=== PATIENT | male | born 1945 | race Caucasian/White ===

== ENCOUNTER 2018-10-22 17:05 | Inpatient (IN) | payer MEDICARE ==
[2018-10-22 18:34] LABS: Troponin I 0.972 ng/mL (< 0.028)
[2018-10-22] MEDS ORDERED: Nitroglycerin 2% Ointment 1 INCH/1 GM Packet TOP SCH (22:00)
[2018-10-22 22:12] LABS: Troponin I 2.123 ng/mL (< 0.028)
[2018-10-22] MEDS ORDERED: Guaifenesin DM 100-10/5 ML UDCUP PO PRN ×2 (22:26→23:39)
[2018-10-22] MEDS ORDERED: Ondansetron PF 4 MG/2 ML Vial IVP PRN ×2 (22:26→23:39)
[2018-10-22] MEDS ORDERED: Acetaminophen 325 MG TAB PO PRN ×2 (22:26→23:39)
[2018-10-22] MEDS ORDERED: Ondansetron ODT 4 MG TAB PO PRN ×2 (22:26→23:39)
[2018-10-22] MEDS ORDERED: Senokot S 8.6-50 MG TAB PO PRN ×2 (22:26→23:39)
[2018-10-22] MEDS ORDERED: Nitroglycerin 0.4 MG TAB (25 Tab Bottle) PO PRN ×2 (22:26→23:39)
[2018-10-22] MEDS ORDERED: Bisacodyl 5 MG TAB PO PRN ×2 (22:26→23:39)
[2018-10-22] MEDS ORDERED: Sodium Chloride 0.9% 1,000 ML IV SCH (22:30)
[2018-10-22 23:30] LABS: #Basophils 0.1 thou/uL (0.0-0.2); #Lymphocytes 1.1 thou/uL (1.20-3.40); #Monocytes 0.7 thou/uL (0.11-0.59); #Neutrophils 4.7 thou/uL (1.40-6.50); %Eosinophils 0.5 % (0.0-10.0); %Lymphocytes 17.1 % (21.0-51.0); %Monocytes 10.2 % (0.0-10.0); %Neutrophils 71.2 % (42.0-75.0); Hemoglobin 16.5 g/dL (14.0-18.0); Mean Corpuscular HGB CONC 33.3 g/dL (32.0-36.0); Mean Corpuscular Hemoglobin 31.9 pg (27.0-31.0); Mean Corpuscular Volume 95.7 fL (78.0-98.0); Mean Platelet Volume 8.4 fL (7.4-10.4); Platelet Count 176 thou/uL (130-400); RBC Distribution Width 13.5 % (11.5-14.5); Red Blood Cell (RBC) Count 5.19 mill/uL (4.70-6.10); White Blood Cell (WBC) Count 6.6 thou/uL (4.8-10.8)
[2018-10-22 23:48] LABS: Anion Gap 17 mmol/L (10-20); BUN (Urea Nitrogen) 10 mg/dL (8.4-25.7); Calc. Creatinine Clearance 87 mL/min (70-130); Calcium 9.6 mg/dL (7.8-10.44); Carbon Dioxide 25 mmol/L (23-31); Chloride 102 mmol/L (98-107); Estimated GFR-MDRD 72; Glucose 91 mg/dL (83-110); Potassium 3.6 mmol/L (3.5-5.1); Sodium 140 mmol/L (136-145)
[2018-10-23] MEDS ORDERED: Nitroglycerin 2% Ointment 1 INCH/1 GM Packet TOP SCH ×2 (00:30→06:00)
[2018-10-23 05:57] LABS: Hemoglobin 14.9 g/dL (14.0-18.0); Platelet Count 167 thou/uL (130-400)
[2018-10-23] MEDS ORDERED: Eucerin (Mineral Oil/Petrolatum,White) 30 gm Jar TOP PRN (07:37)
[2018-10-23] MEDS ORDERED: HYDROcodone/Acetaminophen 5/325 mg Tablet PO PRN (07:37)
[2018-10-23] MEDS ORDERED: Diabetic Tussin 200 MG/10 ML UDCUP PO PRN (07:37)
[2018-10-23] MEDS ORDERED: Cepastat Lozenges 1 LOZ PO PRN (07:37)
[2018-10-23] MEDS ORDERED: Zolpidem Tartrate 5 MG TAB PO PRN (07:37)
[2018-10-23] MEDS ORDERED: hydrALAZINE 20 MG/ML VIAL SLOW IVP PRN (07:37)
[2018-10-23] MEDS ORDERED: Artificial Tears 18 DROP/0.9 ML EA EYE PRN (07:37)
[2018-10-23] MEDS ORDERED: Sodium Chloride 0.65% Nasal 44 ML BOT EA NARE PRN (07:37)
[2018-10-23] MEDS ORDERED: Loratadine 10 MG TAB PO PRN (07:37)
[2018-10-23] MEDS ORDERED: Famotidine/PF 20 mg/2ml Vial SLOW IVP SCH (09:00)
[2018-10-23] MEDS: Famotidine 20 MG TAB PO SCH ×2 (09:00→21:06)
[2018-10-23] MEDS ORDERED: Aspirin 325 MG TAB PO SCH (09:00)
[2018-10-23] MEDS ORDERED: Enoxaparin Sodium 80 MG/0.8 ML SYRINGE SC SCH (09:00)
[2018-10-23] MEDS ORDERED: Enoxaparin Sodium 100 MG/ML SYRINGE SC SCH (09:00)
[2018-10-23] MEDS ORDERED: Metoprolol Tartrate 25 MG TAB PO SCH (09:00)
--- NOTE | 2018-10-23 09:11 | HP ---
CHIEF COMPLAINT: Elevated troponin, and the patient is being transferred. HISTORY OF PRESENT ILLNESS: This is a 72-year-old male with no significant past medical history, presenting with elevated troponins. The patient states that he went to [facility] and the prelim labs that were done showed that his troponins were elevated, and because of that, the doctor over there, decided to transfer him to our facility so that he can be further worked up. The patient stated that he is feeling okay. He does not have any chest pain, palpitations, diaphoresis, nausea, vomiting, fevers. The patient states that the only symptom that he has been having is abdominal distention associated with some bloating, which after burping sometimes he gets better. The patient states that this has been ongoing for the past 1.5 weeks and currently is actually resolving. REVIEW OF SYSTEMS: Positive for bilateral lower extremity edema and dyspnea on exertion. Otherwise, all other systems were reviewed and are negative. PAST MEDICAL HISTORY: No significant past medical history. PAST SURGICAL HISTORY: Tonsillectomy. FAMILY HISTORY: Reviewed, noncontributory. SOCIAL HISTORY: The patient states that he has lived in many parts of the [place]. He has moved about 28 times, and currently, he states that he lives by himself at home. Denies any illicit drugs. Denies smoking history. The patient stated that he drinks about one beer in a week. ALLERGIES: NO KNOWN DRUG ALLERGIES. MEDICATIONS: No current medications. PHYSICAL EXAMINATION: VITAL SIGNS: The patient's blood pressure is 131/85, pulse of 83, respiratory rate of 20, temperature of 97.8, O2 saturation of 95. GENERAL: The patient is lying in bed, does not appear to be in any acute distress. The patient is speaking in full sentences. HEENT: Normocephalic and atraumatic. Pupils are equally round and reactive to light. Extraocular movements are intact. No scleral icterus. No conjunctival pallor. Mucous membranes are moist. NECK: No JVD. Trachea is midline. LUNGS: Clear to auscultation bilaterally. No wheezing, no rales, no rhonchi are appreciated. CARDIAC: Positive S1, S2. Regular rate and rhythm. No murmurs, no gallops, no rubs appreciated. ABDOMEN: Soft, nontender, nondistended. Positive bowel sounds in all quadrants. EXTREMITIES: The patient has 5/5 upper extremity strength and 5/5 lower extremity strength with trace edema noted at the lower extremities bilaterally. NEUROLOGIC: Cranial nerves 2 through 12 grossly intact. No neurologic deficits noted. SKIN: Warm, dry, and intact. DIAGNOSTIC DATA: EKG shows normal sinus rhythm with a rate of 91. LABORATORY DATA: WBC is 6.6, hemoglobin is 16.5, hematocrit is 49.6, platelet count is 176. Electrolytes are sodium is 140, potassium is 3.6, chloride is 102, carbon dioxide of 25, anion gap of 17, creatinine is 1.02. Troponins are 0.972, 2.123. ASSESSMENT AND PLAN: This is a 72-year-old male with no significant past medical history, being admitted for, 1. Non-ST elevation myocardial infarction. At this point, the patient is being treated for non-ST elevation myocardial infarction. We have consulted Cardiology. We will follow up with Cardiology regarding their recommendations. We will continue the patient on current management. We will continue anticoagulation. We will follow up on morning labs. 2. Hypertension. The patient's blood pressure was uncontrolled, and the patient came in the hospital. At this time, we will monitor the patient's blood pressure and we will give the patient p.r.n. blood pressure medications to manage the patient's blood pressure. 3. Dyspnea on exertion. At this point, the patient stated that he is feeling much better; however, we have Cardiology on consult. We will follow up with Cardiology's recommendations, and we will continue cardiac workup. 4. Deep vein thrombosis/gastrointestinal prophylaxis. Job ID: [id number]
[2018-10-23 09:38] LABS: ALT (SGPT) 14 U/L (8-55); AST (SGOT) 43 U/L (5-34); Albumin 3.2 g/dL (3.4-4.8); Alkaline Phosphatase 82 U/L (40-150); Bilirubin, Direct 0.4 mg/dL (0.1-0.3); Bilirubin, Total 1.2 mg/dL (0.2-1.2); Cardiac Risk 3.5 (Less than 4.5); Cholesterol 158 mg/dl (< 200 Desired); HDL Cholesterol 45 mg/dL (>60 Neg Risk); LDL Cholesterol, Calculated 93 mg/dL; Protein, Total 7.8 g/dL (5.8-8.1); Triglycerides 100 mg/dL (Less than 150)
--- NOTE | 2018-10-23 11:07 | PDOC.PN ---
- Subjective Encounter Start Date: 10/23/18 Encounter Start Time: 07:50 -: old records requested/rev pt feels better, less dyspnea and no chest pain, he is on room air, Patient seen and examined. No new complaints. No overnight events - Objective Resuscitation Status - Order Detail: 10/22/18 22:26 Resuscitation Status Routine Resuscitation Status: FULL: Full Resuscitation MAR Reviewed: Yes Vital Signs & Weight: Vital Signs (12 hours) Temp Pulse Resp BP BP Pulse Ox 10/23/18 07:30 93 L 10/23/18 07:20 98.1 F 86 16 127/57 L 93 L 10/23/18 04:37 97.3 F L 77 16 100/58 L 92 L Weight Weight 209 lb 11.2 oz I&O: 10/22/18 10/23/18 10/24/18 06:59 06:59 06:59 Intake Total 200 Output Total 300 Balance -100 Result Diagrams: 10/23/18 05:20 10/23/18 05:20 Radiology Reviewed by me: Yes EKG Reviewed by me: Yes (nsr) Phys Exam - Physical Examination Constitutional: NAD HEENT: PERRLA, moist MMs, sclera anicteric Neck: no JVD, supple Respiratory: no wheezing, no rhonchi few basal rales Cardiovascular: RRR, no significant murmur, no rub Gastrointestinal: soft, non-tender, no distention, positive bowel sounds Musculoskeletal: pulses present, edema present Neurological: non-focal, normal sensation, moves all 4 limbs Psychiatric: normal affect, A&O x 3 Skin: no rash, normal turgor Dx/Plan (1) New onset of congestive heart failure Code(s): I50.9 - HEART FAILURE, UNSPECIFIED Status: Acute (2) NSTEMI (non-ST elevated myocardial infarction) Code(s): I21.4 - NON-ST ELEVATION (NSTEMI) MYOCARDIAL INFARCTION Status: Acute (3) Obesity (BMI 30.0-34.9) Code(s): E66.9 - OBESITY, UNSPECIFIED Status: Chronic - Plan cont current plan of care * continue aspirin, lovenox * change lasix po * DC nitro patch for low BP * continue meroprolol * get echo today * cardiology consulted, he will need cardiac cath * monitor on tele * medication reviewed as below * symptomatic treatment. Review of Systems - Review of Systems ENT: negative: Ear Pain, Ear Discharge, Nose Pain, Nose Discharge, Nose Congestion, Mouth Pain, Mouth Swelling, Throat Pain, Throat Swelling, Other Respiratory: SOB with Excertion. negative: Cough, Dry, Shortness of Breath, Hemoptysis, Pleuritic Pain, Sputum, Wheezing Cardiovascular: negative: chest pain, palpitations, orthopnea, paroxysmal nocturnal dyspnea, edema, light headedness, other Gastrointestinal: negative: Nausea, Vomiting, Abdominal Pain, Diarrhea, Constipation, Melena, Hematochezia, Other Genitourinary: negative: Dysuria, Frequency, Incontinence, Hematuria, Retention , Other Musculoskeletal: negative: Neck Pain, Shoulder Pain, Arm Pain, Back Pain, Hand Pain, Leg Pain, Foot Pain, Other Skin: negative: Rash, Lesions, Valerio, Bruising, Other - Medications/Allergies Allergies/Adverse Reactions: Allergies Allergy/AdvReac Type Severity Reaction Status Date / Time No Known Allergies Allergy Unverified 10/22/18 22:37 Medications: Current Medications Acetaminophen (Tylenol) 650 mg PO Q4H PRN PRN Reason: Headache/Fever/Mild Pain (1-3) Hydrocodone Bitart/Acetaminophen ([place] 5/325) 1 tab PO Q4H PRN PRN Reason: Moderate Pain (4-6) Artificial Tears (Tears Naturale) 2 drop EA EYE PRN PRN PRN Reason: Dry Eyes Aspirin (Aspirin) 325 mg PO DAILY [facility] Last Admin: 10/23/18 08:59 Dose: 325 mg Atorvastatin Calcium (Lipitor) 40 mg PO HS [facility] Bisacodyl (Dulcolax) 10 mg PO DAILYPRN PRN PRN Reason: Constipation Enoxaparin Sodium (Lovenox) 100 mg SC 0900,2100 [facility] Last Admin: 10/23/18 09:00 Dose: 100 mg Famotidine (Pepcid) 20 mg PO BID [facility] Last Admin: 10/23/18 09:00 Dose: 20 mg Guaifenesin (Robitussin Sf) 200 mg PO Q4H PRN PRN Reason: Cough Guaifenesin/Dextromethorphan (Robitussin Dm) 15 ml PO Q4H PRN PRN Reason: Cough Hydralazine HCl (Apresoline) 10 mg SLOW IVP Q4H PRN PRN Reason: SBP > 180 and HR < 70 Loratadine (Claritin) 10 mg PO DAILYPRN PRN PRN Reason: Sinus Symptoms Metoprolol Tartrate (Lopressor) 12.5 mg PO BID [facility] Last Admin: 10/23/18 08:58 Dose: 12.5 mg Mineral Oil/White Petrolatum (Eucerin Cream) 0 gm TOP BIDPRN PRN PRN Reason: Dry Skin Nitroglycerin (Nitrostat) 0.4 mg PO Q5MIN PRN PRN Reason: Chest Pain Ondansetron HCl (Zofran Odt) 4 mg PO Q6H PRN PRN Reason: Nausea/Vomiting Ondansetron HCl (Zofran) 4 mg IVP Q6H PRN PRN Reason: Nausea/Vomiting Senna/Docusate Sodium (Senokot S) 2 tab PO BIDPRN PRN PRN Reason: Constipation Sodium Chloride (Flush - Normal Saline) 10 ml IVF Q12HR [facility] Last Admin: 10/23/18 09:00 Dose: 10 ml Sodium Chloride (Flush - Normal Saline) 10 ml IVF PRN PRN PRN Reason: Saline Flush Sodium Chloride ([place] Nasal [place] 0.65%) 0 ml EA NARE QIDPRN PRN PRN Reason: Nasal Congestion Throat Lozenges (Cepastat Lozenges) 1 tammy PO Q2H PRN PRN Reason: Sore Throat Zolpidem Tartrate (Ambien) 5 mg PO HSPRN PRN PRN Reason: Insomnia
[2018-10-23] MEDS ORDERED: Communication Order-Pharmacy FS SCH (14:00)
[2018-10-23] MEDS: Furosemide 20 MG TAB PO SCH (15:00)
[2018-10-23] MEDS: Carvedilol 3.125 MG TAB PO SCH (16:26)
--- NOTE | 2018-10-23 20:50 | CON ---
DATE OF CONSULTATION: HISTORY: Lee Aparicio is a pleasant 72-year-old white male who denies any previous health problems. He has noted over the last 3 or 4 weeks that at times, he would get epigastric pressure and bloating, which was many times relieved with belching. Also associated with this, he would sometimes feel short of breath. He had no nausea, vomiting, or diaphoresis. One to two weeks ago, he began to notice his leg swelling. The episodes of epigastric discomfort did not appear to last more than 1 or 2 minutes at a time. He does not know of any activities that would bring this on a reliable basis. Yesterday, he was having the epigastric pressure and bloating and later in the day, looked at his leg edema and decided he was going to go to the emergency room in [place] to have this evaluated. He was seen there, given intravenous Lasix and transferred for further evaluation. PAST MEDICAL HISTORY: He denies any history of hypertension, diabetes, or hypercholesterolemia. PAST SURGICAL HISTORY: Tonsillectomy. MEDICATIONS: None. ALLERGIES: NONE. SOCIAL HISTORY: He smoked several cigarettes per day, but stopped 4 years ago. He started smoking again after his . FAMILY HISTORY: Father had myocardial infarction. PHYSICAL EXAMINATION: VITAL SIGNS: Blood pressure 100/62 and pulse 74. HEENT: PERRL. NECK: Supple. CHEST: Clear. CARDIAC: S1 and S2 normal without any S3 or S4, or murmurs. Carotid upstroke is normal without bruits. ABDOMEN: Normal bowel sounds. He does not have any epigastric tenderness. EXTREMITIES: Revealed 2+ pretibial edema. NEUROLOGIC: Grossly intact. SKIN: Warm and dry. LABORATORY DATA: EKG in [place] revealed sinus tachycardia with a rate of 111 per minute with premature ventricular beats. There is low voltage and downsloping ST segments in 1 and L as well as V3 through V6. CBC is unremarkable. Sodium 140, potassium 3.6, chloride 102, carbon dioxide 25 , BUN 10, creatinine 1.02. AST 43, ALT is normal at 14. BNP 1689.1, troponin I 2.123. Cholesterol 158, triglycerides 100, HDL 45, LDL 93. Echocardiogram revealed severe left ventricular dysfunction with ejection fraction of 20% to 25%, moderate right ventricular enlargement, left atrial enlargement, severe mitral regurgitation, aortic valvular sclerosis, mild aortic regurgitation, and mild tricuspid regurgitation. IMPRESSION: 1. Probable [id number] myocardial infarction. His cardiac pain is probably the epigastric pressure that he describes. 2. Severe left ventricular dysfunction with ejection fraction of 20% to 25%. 3. LDL 93. 4. Positive family history. 5. Former smoker. PLAN: The patient has been placed on p.o. Lasix and will continue to be diuresed. Metoprolol will be discontinued, so he can be placed on very low-dose carvedilol. It was recommended he undergo cardiac catheterization. Risks of this were discussed with the patient including , myocardial infarction, dye reaction, vascular injury, CVA, transfusion, limb loss, renal loss, etc. Also risk of interventional PTCA and stent placement were discussed including , myocardial infarction, emergent CABG, restenosis, stent thrombosis, vessel perforation, etc. He has no history of gastrointestinal bleeding or stroke. He does not have any upcoming surgeries and overall, it is recommended that a drug-eluting stent be placed if needed. He understands and is agreeable to proceed. Job ID: [id number] [facility]
[2018-10-23] MEDS: Atorvastatin Calcium 40 MG TAB PO SCH (20:53)
[2018-10-24] MEDS: Furosemide 20 MG TAB PO SCH ×3 (05:06→16:00)
[2018-10-24] MEDS: Famotidine 20 MG TAB PO SCH ×2 (05:21→21:26)
[2018-10-24] MEDS: Aspirin 325 MG TAB PO SCH (05:21)
[2018-10-24] MEDS ORDERED: Sodium Chloride 0.9% 1,000 ML IV SCH ×2 (06:00→09:41)
[2018-10-24] MEDS ORDERED: Heparin 10,000 UNITS/1 ML VIAL ONE ×2 (06:30→09:25)
[2018-10-24] MEDS: Carvedilol 3.125 MG TAB PO SCH ×2 (07:57→16:01)
[2018-10-24] MEDS ORDERED: Midazolam HCl 2 mg/2 ml Vial ONE (08:59)
[2018-10-24] MEDS ORDERED: Fentanyl 100 MCG/2 ML VIAL ONE (08:59)
[2018-10-24] MEDS ORDERED: Protamine Sulfate 50 MG/5 ML VIAL ONE (09:37)
[2018-10-24] MEDS ORDERED: Iopamidol 370 76% 100 ML VIAL ONE (09:38)
[2018-10-24] MEDS ORDERED: Nitroglycerin 0.4 MG TAB (25 Tab Bottle) SL PRN (09:40)
[2018-10-24] MEDS ORDERED: traMADol HCl 50 MG TAB PO PRN (09:40)
[2018-10-24] MEDS ORDERED: Acetaminophen/Codeine 30-300mg Tablet PO PRN ×2 (09:40)
[2018-10-24] MEDS ORDERED: Carvedilol 3.125 MG TAB PO SCH (09:45)
[2018-10-24] MEDS ORDERED: Sodium Chloride 0.9% 200 ML IV SCH (09:45)
[2018-10-24] MEDS ORDERED: Communication Order-Pharmacy FS ONE (12:08)
--- NOTE | 2018-10-24 13:18 | PDOC.PN ---
- Subjective Encounter Start Date: 10/24/18 Encounter Start Time: 10:30 Patient seen and examined. No new complaints. No overnight events - Objective Resuscitation Status - Order Detail: 10/22/18 22:26 Resuscitation Status Routine Resuscitation Status: FULL: Full Resuscitation MAR Reviewed: Yes Vital Signs & Weight: Vital Signs (12 hours) Temp Pulse Resp BP BP Pulse Ox 10/24/18 10:00 97.5 F L 84 17 136/90 94 L 10/24/18 08:00 94 L 10/24/18 07:58 98.6 F 81 18 138/99 H 94 L 10/24/18 03:50 97.1 F L 89 20 147/94 H 93 L Weight Admit Weight 209 lb 11.2 oz Weight 208 lb 8 oz I&O: 10/23/18 10/24/18 10/25/18 06:59 06:59 06:59 Intake Total 200 780 Output Total 300 1600 Balance -100 -820 Result Diagrams: 10/23/18 05:20 10/23/18 05:20 EKG Reviewed by me: Yes Phys Exam - Physical Examination Constitutional: NAD HEENT: PERRLA, moist MMs, sclera anicteric Neck: no JVD, supple Respiratory: no wheezing, no rales, no rhonchi Cardiovascular: RRR, no rub SM at apex Gastrointestinal: soft, non-tender, no distention, positive bowel sounds Musculoskeletal: no edema, pulses present Neurological: non-focal, normal sensation, moves all 4 limbs Lymphatic: no nodes Psychiatric: normal affect, A&O x 3 Skin: no rash, normal turgor Dx/Plan (1) New onset of congestive heart failure Code(s): I50.9 - HEART FAILURE, UNSPECIFIED Status: Acute Comment: systolic , EF 20-25% (2) NSTEMI (non-ST elevated myocardial infarction) Code(s): I21.4 - NON-ST ELEVATION (NSTEMI) MYOCARDIAL INFARCTION Status: Acute (3) Obesity (BMI 30.0-34.9) Code(s): E66.9 - OBESITY, UNSPECIFIED Status: Chronic (4) Severe mitral regurgitation Code(s): I34.0 - NONRHEUMATIC MITRAL (VALVE) INSUFFICIENCY Status: Acute - Plan cont current plan of care * medication reviewed as below * symptomatic treatment * today cardiac cath * continue medical management for now * cardiology recommendation appreciated. Review of Systems - Review of Systems ENT: negative: Ear Pain, Ear Discharge, Nose Pain, Nose Discharge, Nose Congestion, Mouth Pain, Mouth Swelling, Throat Pain, Throat Swelling, Other Respiratory: negative: Cough, Dry, Shortness of Breath, Hemoptysis, SOB with Excertion, Pleuritic Pain, Sputum, Wheezing Cardiovascular: negative: chest pain, palpitations, orthopnea, paroxysmal nocturnal dyspnea, edema, light headedness, other Gastrointestinal: negative: Nausea, Vomiting, Abdominal Pain, Diarrhea, Constipation, Melena, Hematochezia, Other Genitourinary: negative: Dysuria, Frequency, Incontinence, Hematuria, Retention , Other Musculoskeletal: negative: Neck Pain, Shoulder Pain, Arm Pain, Back Pain, Hand Pain, Leg Pain, Foot Pain, Other - Medications/Allergies Allergies/Adverse Reactions: Allergies Allergy/AdvReac Type Severity Reaction Status Date / Time No Known Allergies Allergy Unverified 10/22/18 22:37 Medications: Current Medications Acetaminophen (Tylenol) 650 mg PO Q4H PRN PRN Reason: Headache/Fever/Mild Pain (1-3) Acetaminophen/Codeine Phosphate (Tylenol #3) 1 tab PO Q4H PRN PRN Reason: Mild Pain (1-3) Acetaminophen/Codeine Phosphate (Tylenol #3) 2 tab PO Q4H PRN PRN Reason: Moderate Pain (4-6) Hydrocodone Bitart/Acetaminophen ([place] 5/325) 1 tab PO Q4H PRN PRN Reason: Moderate Pain (4-6) Artificial Tears (Tears Naturale) 2 drop EA EYE PRN PRN PRN Reason: Dry Eyes Aspirin (Aspirin) 325 mg PO DAILY [facility] Last Admin: 10/24/18 05:21 Dose: 325 mg Atorvastatin Calcium (Lipitor) 40 mg PO HS [facility] Last Admin: 10/23/18 20:53 Dose: 40 mg Bisacodyl (Dulcolax) 10 mg PO DAILYPRN PRN PRN Reason: Constipation [facility] ([facility]) [facility] Enoxaparin Sodium (Lovenox) 100 mg SC 0900,2100 [facility] Famotidine (Pepcid) 20 mg PO BID [facility] Last Admin: 10/24/18 05:21 Dose: 20 mg Furosemide (Lasix) 40 mg PO 0900,1400 [facility] Last Admin: 10/24/18 05:24 Dose: 40 mg Guaifenesin (Robitussin Sf) 200 mg PO Q4H PRN PRN Reason: Cough Guaifenesin/Dextromethorphan (Robitussin Dm) 15 ml PO Q4H PRN PRN Reason: Cough Hydralazine HCl (Apresoline) 10 mg SLOW IVP Q4H PRN PRN Reason: SBP > 180 and HR < 70 Sodium Chloride (Normal Saline 0.9%) 1,000 mls @ 125 mls/hr IV .Q8H [facility] Stop: 10/24/18 14:00 Last Admin: 10/24/18 10:00 Dose: 1,000 mls Vancomycin HCl 1 gm/ Device 200 mls @ 200 mls/hr IVPB ONE [facility] Loratadine (Claritin) 10 mg PO DAILYPRN PRN PRN Reason: Sinus Symptoms Mineral Oil/White Petrolatum (Eucerin Cream) 0 gm TOP BIDPRN PRN PRN Reason: Dry Skin Miscellaneous Information (Communication Order-Pharmacy) 1 each FS ONE ONE Stop: 10/24/18 12:09 Nitroglycerin (Nitrostat) 0.4 mg PO Q5MIN PRN PRN Reason: Chest Pain Nitroglycerin (Nitrostat) 0.4 mg SL Q5MIN PRN PRN Reason: Chest Pain Ondansetron HCl (Zofran Odt) 4 mg PO Q6H PRN PRN Reason: Nausea/Vomiting Ondansetron HCl (Zofran) 4 mg IVP Q6H PRN PRN Reason: Nausea/Vomiting Senna/Docusate Sodium (Senokot S) 2 tab PO BIDPRN PRN PRN Reason: Constipation Sodium Chloride (Flush - Normal Saline) 10 ml IVF Q12HR [facility] Last Admin: 10/24/18 05:28 Dose: Not Given Sodium Chloride (Flush - Normal Saline) 10 ml IVF PRN PRN PRN Reason: Saline Flush Sodium Chloride ([place] Nasal [place] 0.65%) 0 ml EA NARE QIDPRN PRN PRN Reason: Nasal Congestion Throat Lozenges (Cepastat Lozenges) 1 tammy PO Q2H PRN PRN Reason: Sore Throat Tramadol HCl (Ul[place]am) 50 mg PO Q6H PRN PRN Reason: Moderate Pain (4-6) Zolpidem Tartrate (Ambien) 5 mg PO HSPRN PRN PRN Reason: Insomnia
--- NOTE | 2018-10-24 16:03 | CON ---
DATE OF CONSULTATION: 10/24/2018 REQUESTING PHYSICIAN: Dr. Blanco. CHIEF COMPLAINT: Epigastric bloating. HISTORY OF PRESENT ILLNESS: The patient is a 72-year-old man, who seldom goes to the doctor and takes no medicines on a regular basis. For about the last 3 or 4 weeks, he has been having a sensation of epigastric bloating that created a pressure type sensation, that was uncomfortable in its own right and was associated with shortness of breath and would be relieved by belching. This has been happening with increasing frequency over this period of time, and at presentation the day before yesterday, perhaps was a bit worse. Over the last 1 to 2 weeks, he has been noticing that his legs and feet were starting to swell and he was having trouble lying flat because of shortness of breath. When he did an internet search on causes of dependent edema and saw cardiac issues are being one of the possibilities, he decided to go to the [facility] in [place]. Apparently, there, he had an abnormal troponin and he was transferred here to [place]. His initial troponin here was 0.972 and a followup troponin about 4 hours later was 2.123. Yesterday morning on a blood draw, his BNP was 1689.1. The patient was started on diuretics and over the last 24 hours, is diuresed about 1.5 L, his measured I' and O's were negative 800 mL or so, and his weight has come down from 209.75 pounds to 208.5 pounds. PAST MEDICAL HISTORY: The patient has no known past medical history and takes no medications on regular basis. MEDICATIONS: Here, he is on: 1. Adult aspirin a day. 2. Lipitor 40 mg at bedtime. 3. Coreg 3.125 mg b.i.d. 4. Lasix 40 mg p.o. b.i.d. 5. Pepcid 20 mg p.o. b.i.d. SOCIAL HISTORY: He had been a light smoker, quit smoking for about 4 years and apparently recently restarted smoking a few cigarettes a day. He does not consume alcohol. He has relatively sedentary lifestyle. FAMILY HISTORY: Significant for his father having what he describes as 2 heart attacks and 3 strokes in the course of 5 days in his late 70s, but lived about another 5 years. To the best of his knowledge, his mother and his siblings have respectively no heart problems. His daughter is healthy with no heart problems, of which he is aware. REVIEW OF SYSTEMS: He denies any transient eye, speech, facial, or extremity symptoms consistent with TIAs. He denies any leg cramping with walking. Prior to this, he had no breathing difficulties. He has had orthopnea and deep tendon edema only over the last 2 weeks. PHYSICAL EXAMINATION: GENERAL: He is comfortable appearing. VITAL SIGNS: Height is 5 feet 10 inches, current weight is 208.5 pounds. Temperature is 97.5, heart rate is 84, blood pressure 136/90, and room air O2 sats are 93% to 95%. HEENT: He has no xanthelasma. NECK: No JVD. No carotid bruits. CHEST: His chest has diminished breath sounds at the bases. HEART: He has a regular rate and rhythm without murmur or gallop. ABDOMEN: Soft and nontender. EXTREMITIES: He has easily palpable radial, femoral, and popliteal pulses. He has 2+ pitting edema about senior care up the leg and in the feet, and I am not able to palpate dorsalis pedis or posterior tibial pulses on either side. He has some reddish discoloration on his feet that does not bere and is nontender. Capillary refill is about 1.5 seconds bilaterally. I am able to appreciate saphenous vein. He has no obvious varicosities. NEUROLOGIC: Grossly nonfocal. LABORATORY DATA: His white count was 6.6, hemoglobin 16.5, hematocrit 49.6, platelets 176,000. Electrolytes were normal. Glucose 91, BUN 10, creatinine 1.02, protein 7.8, albumin 3.2, calcium 9.6. Liver function tests were normal with the exception of mildly elevated AST. Triglycerides were 100. Cholesterol 158, LDL 93, HDL 45, TSH 2.1523. His initial troponin here at about 05:45 on the evening of the was 0.972 and at 09:30 that night was 2.123. The following morning about 9 o'clock, his BNP was 1689.1. Per Dr. Blanco's note, the EKG he had in [place] showed a heart rate of 111 with PVCs with low voltage and downsloping STs in 1, L, V3, 4, 5, and 6. An echocardiogram here showed LVEF of about 20% to 25% with a mildly dilated left atrium and severe mitral regurgitation. Cardiac catheterization today shows severe 3-vessel coronary artery disease with markedly decreased LV function with an LVEF around 20% with inferior and posterior akinesis and significant hypokinesis along the inferior wall toward the apex that borders on akinesis. The rest of the heart is significantly hypokinetic with really a relatively modest amount of mitral regurgitation. He has obvious calcifications in his coronaries. He has an occluded circumflex and 80% to 90% lesion in the LAD proximal to the first septal printer slotter helper and about 60% lesion a few centimeters distal to it. He only has tiny diagonals that I can appreciate. There are multiple tiny vessels that probably represent OM1 and OM2 type vessels that appear late on the left-sided injections. There is a posterolateral vessel that shows on this, but in the right coronary injections, there is competitive flow in a small PDA or underfilled PDA beyond the high-grade lesion in the midportion of it. He has a subtotal lesion in the proximal right coronary that may be associated with thrombus, more modest lesion in the mid right coronary beyond an acute marginal. He has fairly good size posterolateral branch that is unobstructed beyond that point that arborizes into multiple tiny vessels. The PDA is reasonably good size proximally, and then there is dramatic change in caliber just beyond very high-grade lesion, again perhaps representing an underfilled vessel, but competitive flow can be appreciated in it. IMPRESSION AND RECOMMENDATIONS: Severe 3-vessel coronary artery disease with presumably ischemic cardiomyopathy with acute systolic heart failure and [id number] myocardial infarction. The patient may also have peripheral vascular disease based on physical exam, although, the peripheral edema he has good simply be obscuring, otherwise good pedal pulses. He so far is responding well to diuretics and the plan currently as long as he remains stable. He is to continue diuresis through the weekend and plan on coronary artery bypass grafting, Saturday. Job ID: [id number]
--- NOTE | 2018-10-24 18:40 | RAD ---
PORTABLE CHEST: 10/24/18 HISTORY: Pre open heart exam. IMPRESSION: There are bilateral pleural effusions and bibasilar atelectasis. Mild vascular engorgement. Mild card iomegaly. POS: [facility]
[2018-10-24] MEDS: Atorvastatin Calcium 40 MG TAB PO SCH (21:26)
[2018-10-25 05:01] LABS: Hemoglobin 14.7 g/dL (14.0-18.0); Platelet Count 157 thou/uL (130-400)
[2018-10-25 05:14] LABS: Anion Gap 16 mmol/L (10-20); BUN (Urea Nitrogen) 13 mg/dL (8.4-25.7); Calc. Creatinine Clearance 79 mL/min (70-130); Calcium 8.4 mg/dL (7.8-10.44); Carbon Dioxide 28 mmol/L (23-31); Chloride 99 mmol/L (98-107); Estimated GFR-MDRD 64; Glucose 63 mg/dL (83-110); Potassium 3.2 mmol/L (3.5-5.1); Sodium 140 mmol/L (136-145)
[2018-10-25] MEDS ORDERED: Potassium Chloride 20 MEQ TAB PO SCH (07:45)
[2018-10-25] MEDS: Furosemide 20 MG TAB PO SCH ×2 (08:54→14:00)
[2018-10-25] MEDS: Carvedilol 3.125 MG TAB PO SCH (08:55)
[2018-10-25] MEDS: Aspirin 325 MG TAB PO SCH (08:55)
[2018-10-25] MEDS: Famotidine 20 MG TAB PO SCH ×2 (08:55→21:46)
--- NOTE | 2018-10-25 10:15 | PDOC.PN ---
- Subjective Encounter Start Date: 10/25/18 Encounter Start Time: 07:30 Patient seen and examined. No new complaints. No overnight events - Objective Resuscitation Status - Order Detail: 10/22/18 22:26 Resuscitation Status Routine Resuscitation Status: FULL: Full Resuscitation MAR Reviewed: Yes Vital Signs & Weight: Vital Signs (12 hours) Temp Pulse Resp BP Pulse Ox 10/25/18 07:32 97.4 F L 78 16 122/74 95 10/25/18 04:49 92 L 10/25/18 04:00 97.4 F L 75 20 122/69 92 L Weight Admit Weight 209 lb 11.2 oz Weight 208 lb 8 oz I&O: 10/24/18 10/25/18 10/26/18 06:59 06:59 06:59 Intake Total 780 1240 Output Total 1600 1600 Balance -820 -360 Result Diagrams: 10/25/18 04:50 10/25/18 04:50 EKG Reviewed by me: Yes (nsr) Phys Exam - Physical Examination Constitutional: NAD HEENT: PERRLA, moist MMs, sclera anicteric Neck: no JVD, supple Respiratory: no wheezing, no rales, no rhonchi Cardiovascular: RRR, no rub SM+ Gastrointestinal: soft, non-tender, no distention, positive bowel sounds Musculoskeletal: no edema, pulses present Neurological: non-focal, normal sensation, moves all 4 limbs Lymphatic: no nodes Psychiatric: normal affect, A&O x 3 Skin: no rash, normal turgor Dx/Plan (1) Acute systolic ACC/AHA stage C congestive heart failure Code(s): I50.21 - ACUTE SYSTOLIC (CONGESTIVE) HEART FAILURE Status: Acute (2) NSTEMI (non-ST elevated myocardial infarction) Code(s): I21.4 - NON-ST ELEVATION (NSTEMI) MYOCARDIAL INFARCTION Status: Acute (3) Severe mitral regurgitation Code(s): I34.0 - NONRHEUMATIC MITRAL (VALVE) INSUFFICIENCY Status: Acute (4) 3-vessel coronary artery disease Status: Acute (5) Hypokalemia Code(s): E87.6 - HYPOKALEMIA Status: Acute (6) Obesity (BMI 30.0-34.9) Code(s): E66.9 - OBESITY, UNSPECIFIED Status: Chronic - Plan cont current plan of care * replace potassium * continue lasix * plan for CABG on saturday * medication reviewed as below * symptomatic treatment. Review of Systems - Review of Systems ENT: negative: Ear Pain, Ear Discharge, Nose Pain, Nose Discharge, Nose Congestion, Mouth Pain, Mouth Swelling, Throat Pain, Throat Swelling, Other Respiratory: negative: Cough, Dry, Shortness of Breath, Hemoptysis, SOB with Excertion, Pleuritic Pain, Sputum, Wheezing Cardiovascular: negative: chest pain, palpitations, orthopnea, paroxysmal nocturnal dyspnea, edema, light headedness, other Gastrointestinal: negative: Nausea, Vomiting, Abdominal Pain, Diarrhea, Constipation, Melena, Hematochezia, Other Genitourinary: negative: Dysuria, Frequency, Incontinence, Hematuria, Retention , Other Musculoskeletal: negative: Neck Pain, Shoulder Pain, Arm Pain, Back Pain, Hand Pain, Leg Pain, Foot Pain, Other Skin: negative: Rash, Lesions, Valerio, Bruising, Other - Medications/Allergies Allergies/Adverse Reactions: Allergies Allergy/AdvReac Type Severity Reaction Status Date / Time No Known Allergies Allergy Unverified 10/22/18 22:37 Medications: Current Medications Acetaminophen (Tylenol) 650 mg PO Q4H PRN PRN Reason: Headache/Fever/Mild Pain (1-3) Stop: 10/27/18 08:59 Acetaminophen/Codeine Phosphate (Tylenol #3) 1 tab PO Q4H PRN PRN Reason: Mild Pain (1-3) Stop: 10/27/18 08:59 Acetaminophen/Codeine Phosphate (Tylenol #3) 2 tab PO Q4H PRN PRN Reason: Moderate Pain (4-6) Stop: 10/27/18 08:59 Hydrocodone Bitart/Acetaminophen ([place] 5/325) 1 tab PO Q4H PRN PRN Reason: Moderate Pain (4-6) Stop: 10/27/18 08:59 Artificial Tears (Tears Naturale) 2 drop EA EYE PRN PRN PRN Reason: Dry Eyes Stop: 10/27/18 08:59 Aspirin (Aspirin) 325 mg PO DAILY SING[facility] Stop: 10/27/18 08:59 Last Admin: 10/25/18 08:55 Dose: 325 mg Atorvastatin Calcium (Lipitor) 40 mg PO HS SINGH Stop: 10/27/18 08:59 Last Admin: 10/24/18 21:26 Dose: 40 mg Bisacodyl (Dulcolax) 10 mg PO DAILYPRN PRN PRN Reason: Constipation Stop: 10/27/18 08:59 Carvedilol (Coreg) 3.125 mg PO BID-[facility] Stop: 10/27/18 12:00 Last Admin: 10/25/18 08:55 Dose: 3.125 mg Enoxaparin Sodium (Lovenox) 100 mg SC 0900,2100 [facility] Stop: 10/27/18 08:59 Famotidine (Pepcid) 20 mg PO BID [facility] Stop: 10/27/18 08:59 Last Admin: 10/25/18 08:55 Dose: 20 mg Furosemide (Lasix) 40 mg PO 0900,1400 [facility] Stop: 10/27/18 08:59 Last Admin: 10/25/18 08:54 Dose: 40 mg Guaifenesin (Robitussin Sf) 200 mg PO Q4H PRN PRN Reason: Cough Stop: 10/27/18 08:59 Guaifenesin/Dextromethorphan (Robitussin Dm) 15 ml PO Q4H PRN PRN Reason: Cough Stop: 10/27/18 08:59 Hydralazine HCl (Apresoline) 10 mg SLOW IVP Q4H PRN PRN Reason: SBP > 180 and HR < 70 Stop: 10/27/18 08:59 Vancomycin HCl 1 gm/ Device 200 mls @ 200 mls/hr IVPB 0930 [facility] Stop: 10/27/18 10:29 Loratadine (Claritin) 10 mg PO DAILYPRN PRN PRN Reason: Sinus Symptoms Stop: 10/27/18 08:59 Mineral Oil/White Petrolatum (Eucerin Cream) 0 gm TOP BIDPRN PRN PRN Reason: Dry Skin Stop: 10/27/18 08:59 Nitroglycerin (Nitrostat) 0.4 mg PO Q5MIN PRN PRN Reason: Chest Pain Stop: 10/27/18 08:59 Nitroglycerin (Nitrostat) 0.4 mg SL Q5MIN PRN PRN Reason: Chest Pain Stop: 10/27/18 08:59 Ondansetron HCl (Zofran Odt) 4 mg PO Q6H PRN PRN Reason: Nausea/Vomiting Stop: 10/27/18 08:59 Ondansetron HCl (Zofran) 4 mg IVP Q6H PRN PRN Reason: Nausea/Vomiting Stop: 10/27/18 08:59 Senna/Docusate Sodium (Senokot S) 2 tab PO BIDPRN PRN PRN Reason: Constipation Stop: 10/27/18 08:59 Sodium Chloride (Flush - Normal Saline) 10 ml IVF Q12HR [facility]ING[facility] Stop: 10/27/18 08:59 Last Admin: 10/25/18 08:55 Dose: 10 ml Sodium Chloride (Flush - Normal Saline) 10 ml IVF PRN PRN PRN Reason: Saline Flush Stop: 10/27/18 08:59 Sodium Chloride ([place] Nasal [place] 0.65%) 0 ml EA NARE QIDPRN PRN PRN Reason: Nasal Congestion Stop: 10/27/18 08:59 Throat Lozenges (Cepastat Lozenges) 1 tammy PO Q2H PRN PRN Reason: Sore Throat Stop: 10/27/18 08:59 Tramadol HCl (Ultram) 50 mg PO Q6H PRN PRN Reason: Moderate Pain (4-6) Stop: 10/27/18 08:59 Zolpidem Tartrate (Ambien) 5 mg PO HSPRN PRN PRN Reason: Insomnia Stop: 10/27/18 08:59
[2018-10-25] MEDS ORDERED: Carvedilol 3.125 MG TAB PO SCH ×2 (10:47→11:15)
[2018-10-25] MEDS ORDERED: Carvedilol 6.25 MG TAB PO SCH (11:15)
--- NOTE | 2018-10-25 13:34 | EKG ---
Test Reason : Blood Pressure : / mmHG Vent. Rate : 091 BPM Atrial Rate : 107 BPM P-R Int : 000 ms QRS Dur : 118 ms QT Int : 438 ms P-R-T Axes : 000 -21 034 degrees QTc Int : 538 ms Sinus rhythm Septal infarct , age undetermined Prolonged QT Abnormal ECG Confirmed by MERI NGO DO ([id number]), editor news ODELL BECKHAM ([id number]) on 10/25/2018 1:34:12 PM Referred By: Confirmed By:MERI NGO DO
--- NOTE | 2018-10-25 13:36 | EKG ---
Test Reason : Blood Pressure : / mmHG Vent. Rate : 086 BPM Atrial Rate : 086 BPM P-R Int : 154 ms QRS Dur : 114 ms QT Int : 438 ms P-R-T Axes : 009 -26 011 degrees QTc Int : 524 ms Sinus rhythm with Premature supraventricular complexes Prolonged QT Abnormal ECG Confirmed by MERI NGO DO ([id number]), editorial manager ODELL BECKHAM ([id number]) on 10/25/2018 1:36:00 PM Referred By: Confirmed By:MERI NGO DO
[2018-10-25] MEDS: Carvedilol 6.25 MG TAB PO SCH (16:51)
[2018-10-25] MEDS: Enoxaparin Sodium 100 MG/ML SYRINGE SC SCH (21:45)
[2018-10-25] MEDS: Atorvastatin Calcium 40 MG TAB PO SCH (21:46)
[2018-10-26 05:25] LABS: #Basophils 0.1 thou/uL (0.0-0.2); #Eosinphils 0.2 thou/uL (0.0-0.7); #Lymphocytes 1.5 thou/uL (1.20-3.40); #Monocytes 0.8 thou/uL (0.11-0.59); #Neutrophils 4.1 thou/uL (1.40-6.50); %Eosinophils 3.1 % (0.0-10.0); %Lymphocytes 22.1 % (21.0-51.0); %Monocytes 12.4 % (0.0-10.0); %Neutrophils 61.5 % (42.0-75.0); Hemoglobin 14.3 g/dL (14.0-18.0); Mean Corpuscular Hemoglobin 31.6 pg (27.0-31.0); Mean Corpuscular Volume 95.9 fL (78.0-98.0); Mean Platelet Volume 9.5 fL (7.4-10.4); Platelet Count 167 thou/uL (130-400); RBC Distribution Width 13.2 % (11.5-14.5); Red Blood Cell (RBC) Count 4.52 mill/uL (4.70-6.10); White Blood Cell (WBC) Count 6.7 thou/uL (4.8-10.8)
[2018-10-26 05:40] LABS: Anion Gap 11 mmol/L (10-20); BUN (Urea Nitrogen) 13 mg/dL (8.4-25.7); Calc. Creatinine Clearance 88 mL/min (70-130); Calcium 8.4 mg/dL (7.8-10.44); Carbon Dioxide 32 mmol/L (23-31); Chloride 98 mmol/L (98-107); Estimated GFR-MDRD 73; Glucose 75 mg/dL (83-110); Potassium 3.2 mmol/L (3.5-5.1); Sodium 138 mmol/L (136-145)
[2018-10-26] MEDS: Furosemide 20 MG TAB PO SCH ×2 (09:04→14:09)
[2018-10-26] MEDS: Aspirin 325 MG TAB PO SCH (09:05)
[2018-10-26] MEDS: Potassium Chloride 20 MEQ TAB PO SCH ×2 (09:05→16:40)
[2018-10-26] MEDS: Carvedilol 6.25 MG TAB PO SCH ×2 (09:06→16:40)
[2018-10-26] MEDS: Famotidine 20 MG TAB PO SCH ×2 (09:06→21:25)
[2018-10-26] MEDS: Enoxaparin Sodium 100 MG/ML SYRINGE SC SCH ×2 (09:07→21:25)
--- NOTE | 2018-10-26 10:34 | PDOC.PN ---
- Subjective Encounter Start Date: 10/26/18 Encounter Start Time: 07:45 Patient seen and examined. No new complaints. No overnight events - Objective Resuscitation Status - Order Detail: 10/22/18 22:26 Resuscitation Status Routine Resuscitation Status: FULL: Full Resuscitation MAR Reviewed: Yes Vital Signs & Weight: Vital Signs (12 hours) Temp Pulse Resp BP BP Pulse Ox 10/26/18 09:00 97.9 F 70 16 116/57 L 95 10/26/18 08:45 96 10/26/18 04:00 97.6 F 73 20 118/66 95 10/26/18 02:39 94 L 10/26/18 00:00 95 96/56 L Weight Admit Weight 209 lb 11.2 oz Weight 206 lb 6.4 oz I&O: 10/25/18 10/26/18 10/27/18 06:59 06:59 06:59 Intake Total 1240 1310 Output Total 1600 1800 Balance -360 -490 Result Diagrams: 10/26/18 04:07 10/26/18 04:07 EKG Reviewed by me: Yes (nsr) Phys Exam - Physical Examination Constitutional: NAD HEENT: PERRLA, moist MMs, sclera anicteric Neck: no JVD, supple Respiratory: no wheezing, no rales, no rhonchi Cardiovascular: RRR, no significant murmur, no rub Gastrointestinal: soft, non-tender, no distention, positive bowel sounds Musculoskeletal: no edema, pulses present Neurological: non-focal, normal sensation, moves all 4 limbs Psychiatric: normal affect, A&O x 3 Skin: no rash, normal turgor Dx/Plan (1) Acute systolic ACC/AHA stage C congestive heart failure Code(s): I50.21 - ACUTE SYSTOLIC (CONGESTIVE) HEART FAILURE Status: Acute (2) NSTEMI (non-ST elevated myocardial infarction) Code(s): I21.4 - NON-ST ELEVATION (NSTEMI) MYOCARDIAL INFARCTION Status: Acute (3) Severe mitral regurgitation Code(s): I34.0 - NONRHEUMATIC MITRAL (VALVE) INSUFFICIENCY Status: Acute (4) 3-vessel coronary artery disease Status: Acute (5) Hypokalemia Code(s): E87.6 - HYPOKALEMIA Status: Acute (6) Obesity (BMI 30.0-34.9) Code(s): E66.9 - OBESITY, UNSPECIFIED Status: Chronic - Plan cont current plan of care * medication reviewed as below * symptomatic treatment * continue current optimum medical therapy * replace potassium * tomorrow plan for CABG. Review of Systems - Review of Systems ENT: negative: Ear Pain, Ear Discharge, Nose Pain, Nose Discharge, Nose Congestion, Mouth Pain, Mouth Swelling, Throat Pain, Throat Swelling, Other Respiratory: negative: Cough, Dry, Shortness of Breath, Hemoptysis, SOB with Excertion, Pleuritic Pain, Sputum, Wheezing Cardiovascular: negative: chest pain, palpitations, orthopnea, paroxysmal nocturnal dyspnea, edema, light headedness, other Gastrointestinal: negative: Nausea, Vomiting, Abdominal Pain, Diarrhea, Constipation, Melena, Hematochezia, Other Genitourinary: negative: Dysuria, Frequency, Incontinence, Hematuria, Retention , Other Musculoskeletal: negative: Neck Pain, Shoulder Pain, Arm Pain, Back Pain, Hand Pain, Leg Pain, Foot Pain, Other Skin: negative: Rash, Lesions, Valerio, Bruising, Other - Medications/Allergies Allergies/Adverse Reactions: Allergies Allergy/AdvReac Type Severity Reaction Status Date / Time No Known Allergies Allergy Unverified 10/22/18 22:37 Medications: Current Medications Acetaminophen (Tylenol) 650 mg PO Q4H PRN PRN Reason: Headache/Fever/Mild Pain (1-3) Stop: 10/27/18 08:59 Acetaminophen/Codeine Phosphate (Tylenol #3) 1 tab PO Q4H PRN PRN Reason: Mild Pain (1-3) Stop: 10/27/18 08:59 Acetaminophen/Codeine Phosphate (Tylenol #3) 2 tab PO Q4H PRN PRN Reason: Moderate Pain (4-6) Stop: 10/27/18 08:59 Hydrocodone Bitart/Acetaminophen ([place] 5/325) 1 tab PO Q4H PRN PRN Reason: Moderate Pain (4-6) Stop: 10/27/18 08:59 Artificial Tears (Tears Naturale) 2 drop EA EYE PRN PRN PRN Reason: Dry Eyes Stop: 10/27/18 08:59 Aspirin (Aspirin) 325 mg PO DAILY [facility] Stop: 10/27/18 08:59 Last Admin: 10/26/18 09:05 Dose: 325 mg Atorvastatin Calcium (Lipitor) 40 mg PO HS [facility] Stop: 10/27/18 08:59 Last Admin: 10/25/18 21:46 Dose: 40 mg Bisacodyl (Dulcolax) 10 mg PO DAILYPRN PRN PRN Reason: Constipation Stop: 10/27/18 08:59 Carvedilol (Coreg) 6.25 mg PO BID-[facility] Last Admin: 10/26/18 09:06 Dose: 6.25 mg Enoxaparin Sodium (Lovenox) 100 mg SC 0900,2100 [facility] Stop: 10/27/18 08:59 Last Admin: 10/26/18 09:07 Dose: 100 mg Famotidine (Pepcid) 20 mg PO BID [facility] Stop: 10/27/18 08:59 Last Admin: 10/26/18 09:06 Dose: 20 mg Furosemide (Lasix) 40 mg PO 0900,1400 [facility] Stop: 10/27/18 08:59 Last Admin: 10/26/18 09:04 Dose: 40 mg Guaifenesin (Robitussin Sf) 200 mg PO Q4H PRN PRN Reason: Cough Stop: 10/27/18 08:59 Guaifenesin/Dextromethorphan (Robitussin Dm) 15 ml PO Q4H PRN PRN Reason: Cough Stop: 10/27/18 08:59 Hydralazine HCl (Apresoline) 10 mg SLOW IVP Q4H PRN PRN Reason: SBP > 180 and HR < 70 Stop: 10/27/18 08:59 Vancomycin HCl 1 gm/ Device 200 mls @ 200 mls/hr IVPB ONE [facility] Stop: 10/27/18 12:00 Loratadine (Claritin) 10 mg PO DAILYPRN PRN PRN Reason: Sinus Symptoms Stop: 10/27/18 08:59 Mineral Oil/White Petrolatum (Eucerin Cream) 0 gm TOP BIDPRN PRN PRN Reason: Dry Skin Stop: 10/27/18 08:59 Nitroglycerin (Nitrostat) 0.4 mg PO Q5MIN PRN PRN Reason: Chest Pain Stop: 10/27/18 08:59 Nitroglycerin (Nitrostat) 0.4 mg SL Q5MIN PRN PRN Reason: Chest Pain Stop: 10/27/18 08:59 Ondansetron HCl (Zofran Odt) 4 mg PO Q6H PRN PRN Reason: Nausea/Vomiting Stop: 10/27/18 08:59 Ondansetron HCl (Zofran) 4 mg IVP Q6H PRN PRN Reason: Nausea/Vomiting Stop: 10/27/18 08:59 Potassium Chloride (K-Dur) 40 meq PO BID-[facility] Stop: 10/26/18 17:01 Last Admin: 10/26/18 09:05 Dose: 40 meq Senna/Docusate Sodium (Senokot S) 2 tab PO BIDPRN PRN PRN Reason: Constipation Stop: 10/27/18 08:59 Sodium Chloride (Flush - Normal Saline) 10 ml IVF Q12HR [facility] Stop: 10/27/18 08:59 Last Admin: 10/26/18 09:07 Dose: 10 ml Sodium Chloride (Flush - Normal Saline) 10 ml IVF PRN PRN PRN Reason: Saline Flush Stop: 10/27/18 08:59 Sodium Chloride ([place] Nasal [place] 0.65%) 0 ml EA NARE QIDPRN PRN PRN Reason: Nasal Congestion Stop: 10/27/18 08:59 Throat Lozenges (Cepastat Lozenges) 1 tammy PO Q2H PRN PRN Reason: Sore Throat Stop: 10/27/18 08:59 Tramadol HCl (Ultram) 50 mg PO Q6H PRN PRN Reason: Moderate Pain (4-6) Stop: 10/27/18 08:59 Zolpidem Tartrate (Ambien) 5 mg PO HSPRN PRN PRN Reason: Insomnia Stop: 10/27/18 08:59
[2018-10-26] MEDS: Atorvastatin Calcium 40 MG TAB PO SCH (21:25)
[2018-10-27] MEDS ORDERED: CEFAZOLIN 2 GM/50 ML-DEXTROSE 2 GM in Premix Bag 1 BAG IVPB SCH (01:15)
[2018-10-27] MEDS ORDERED: Fentanyl 250 MCG/5 ML VIAL ONE (05:51)
[2018-10-27] MEDS ORDERED: Norepinephrine 4 MG/4 ML VIAL ONE (05:51)
[2018-10-27] MEDS ORDERED: Adenosine 6 MG/2 ML VIAL ONE (05:51)
[2018-10-27] MEDS: Carvedilol 6.25 MG TAB PO SCH (05:54)
[2018-10-27] MEDS ORDERED: Insulin Regular 300 UNITS/3 ML VIAL ONE (06:20)
[2018-10-27 06:22] LABS: Hemoglobin 15.3 g/dL (14.0-18.0); Platelet Count 182 thou/uL (130-400)
[2018-10-27] MEDS ORDERED: Albumin 5% 500 ML ONE (06:29)
[2018-10-27] MEDS ORDERED: CABG-Vancomycin 1 GM in Premix Bag 1 BAG IVPB SCH ×2 (06:30→09:30)
[2018-10-27 06:39] LABS: Anion Gap 14 mmol/L (10-20); BUN (Urea Nitrogen) 13 mg/dL (8.4-25.7); Calc. Creatinine Clearance 80 mL/min (70-130); Calcium 8.8 mg/dL (7.8-10.44); Carbon Dioxide 29 mmol/L (23-31); Chloride 100 mmol/L (98-107); Estimated GFR-MDRD 68; Glucose 89 mg/dL (83-110); Potassium 3.6 mmol/L (3.5-5.1); Sodium 139 mmol/L (136-145)
[2018-10-27] MEDS ORDERED: Heparin 10,000 UNITS/1 ML VIAL 30,000 UNITS in Sodium Chloride 0.9% 1,000 ML FS SCH (07:00)
[2018-10-27] MEDS ORDERED: CEFAZOLIN 2 GM/50 ML BAG ONE (07:23)
[2018-10-27] MEDS ORDERED: KETAMINE 100 MG/ML (5ML VIAL) ONE (07:31)
[2018-10-27] MEDS ORDERED: Sodium Chloride 0.9% 10 ML ONE (07:53)
--- NOTE | 2018-10-27 11:19 | PDOC.PN ---
- Subjective Encounter Start Date: 10/27/18 Encounter Start Time: 06:00 Patient seen and examined. No new complaints. No overnight events - Objective Resuscitation Status - Order Detail: 10/22/18 22:26 Resuscitation Status Routine Resuscitation Status: FULL: Full Resuscitation MAR Reviewed: Yes Vital Signs & Weight: Vital Signs (12 hours) Temp Pulse Resp BP BP Pulse Ox 10/27/18 05:54 76 16 132/64 10/27/18 03:32 97.7 F 71 20 124/83 95 Weight Admit Weight 209 lb 11.2 oz Weight 202 lb 1.6 oz I&O: 10/26/18 10/27/18 10/28/18 06:59 06:59 06:59 Intake Total 1310 1660 Output Total 1800 1225 Balance -490 435 Result Diagrams: 10/27/18 06:10 10/27/18 06:10 Additional Labs: Accuchecks 10/27/18 10/27/18 10/27/18 11:02 10:47 08:17 POC Glucose 157 H Less than 35 L* 83 EKG Reviewed by me: Yes (nsr) Phys Exam - Physical Examination Constitutional: NAD HEENT: PERRLA, moist MMs, sclera anicteric Neck: no JVD, supple Respiratory: no wheezing, no rales, no rhonchi Cardiovascular: RRR, no significant murmur, no rub Gastrointestinal: soft, non-tender, no distention, positive bowel sounds Musculoskeletal: no edema, pulses present Neurological: non-focal, normal sensation, moves all 4 limbs Psychiatric: normal affect, A&O x 3 Skin: no rash, normal turgor Dx/Plan (1) Acute systolic ACC/AHA stage C congestive heart failure Code(s): I50.21 - ACUTE SYSTOLIC (CONGESTIVE) HEART FAILURE Status: Acute (2) NSTEMI (non-ST elevated myocardial infarction) Code(s): I21.4 - NON-ST ELEVATION (NSTEMI) MYOCARDIAL INFARCTION Status: Acute (3) Severe mitral regurgitation Code(s): I34.0 - NONRHEUMATIC MITRAL (VALVE) INSUFFICIENCY Status: Acute (4) 3-vessel coronary artery disease Status: Acute (5) Hypokalemia Code(s): E87.6 - HYPOKALEMIA Status: Acute (6) Obesity (BMI 30.0-34.9) Code(s): E66.9 - OBESITY, UNSPECIFIED Status: Chronic - Plan cont current plan of care * today plan for CABG * after CABG continue post CABG protocol treatment as per cardiology and cardiovascular surgeon * medication reviewed as below * symptomatic treatment. Review of Systems - Review of Systems ENT: negative: Ear Pain, Ear Discharge, Nose Pain, Nose Discharge, Nose Congestion, Mouth Pain, Mouth Swelling, Throat Pain, Throat Swelling, Other Respiratory: negative: Cough, Dry, Shortness of Breath, Hemoptysis, SOB with Excertion, Pleuritic Pain, Sputum, Wheezing Cardiovascular: negative: chest pain, palpitations, orthopnea, paroxysmal nocturnal dyspnea, edema, light headedness, other Gastrointestinal: negative: Nausea, Vomiting, Abdominal Pain, Diarrhea, Constipation, Melena, Hematochezia, Other Genitourinary: negative: Dysuria, Frequency, Incontinence, Hematuria, Retention , Other Musculoskeletal: negative: Neck Pain, Shoulder Pain, Arm Pain, Back Pain, Hand Pain, Leg Pain, Foot Pain, Other - Medications/Allergies Allergies/Adverse Reactions: Allergies Allergy/AdvReac Type Severity Reaction Status Date / Time No Known Allergies Allergy Unverified 10/22/18 22:37 Medications: Current Medications Carvedilol (Coreg) 6.25 mg PO BID-WM [facility] Last Admin: 10/27/18 05:54 Dose: 6.25 mg Vancomycin HCl 1 gm/ Device 200 mls @ 200 mls/hr IVPB ONE [facility] Stop: 10/27/18 12:00 Cefazolin Sodium/Dextrose 2 gm (/ Device) 50 mls @ 100 mls/hr IVPB [facility] Stop: 10/27/18 19:00 Heparin Sodium (Porcine) 30, (000 units/ Sodium Chloride) 1,003 mls @ 0 mls/hr [facility] Stop: 10/27/18 15:00
[2018-10-27] MEDS ORDERED: Dextrose 50% Abboject 50 ML SYRINGE ONE ×3 (11:35→13:05)
[2018-10-27] MEDS ORDERED: DOBUTamine 500 mg/250 ml 250 ML ONE (12:16)
[2018-10-27] MEDS ORDERED: Albumin 25% 25 GM/100 ML BOT ONE (13:00)
[2018-10-27] MEDS ORDERED: Protamine Sulfate 250 MG/25 ML VIAL ONE (13:00)
[2018-10-27] MEDS ORDERED: Cardioplegic Soln 1,000 ML BAG ONE (13:00)
[2018-10-27] MEDS ORDERED: Aminocaproic Acid 5 GM/20 ML VIAL ONE (13:00)
[2018-10-27] MEDS ORDERED: Calcium Chloride 1 GM/10 ML Abboject SYRINGE ONE (13:00)
[2018-10-27] MEDS ORDERED: Heparin 5,000 UNITS/ML VIAL ONE (13:00)
[2018-10-27] MEDS ORDERED: Heparin 30,000 units/30 ml VIAL ONE (13:00)
[2018-10-27] MEDS ORDERED: Papaverine 60 MG/2 ML VIAL ONE (13:00)
[2018-10-27] MEDS ORDERED: Thrombin 5000 UNITS/5 ML VIAL ONE (13:00)
[2018-10-27] MEDS ORDERED: Magnesium 5 GM/10 ML VIAL ONE (13:00)
[2018-10-27] MEDS ORDERED: Lidocaine 2% PF 100 mg/5 ml Syringe ONE (13:00)
[2018-10-27] MEDS ORDERED: Potassium Chloride 60 MEQ/30 ML VIAL ONE (13:00)
[2018-10-27] MEDS ORDERED: Sodium Bicarb 50 MEQ/50 ML VIAL ONE (13:00)
[2018-10-27] MEDS ORDERED: Mannitol 12.5 GM/50 ML ONE (13:00)
[2018-10-27] MEDS ORDERED: Bisacodyl 5 MG TAB PO PRN (13:47)
[2018-10-27] MEDS ORDERED: niCARdipine HCl 25 MG in Sodium Chloride 0.9% 250 ML 240 ML IVPB PRN (13:47)
[2018-10-27] MEDS ORDERED: Guaifenesin DM 100-10/5 ML UDCUP PO PRN (13:47)
[2018-10-27] MEDS ORDERED: Morphine 4 MG/ML VIAL SLOW IVP PRN (13:47)
[2018-10-27] MEDS ORDERED: Post-Op Insulin Drip Protocol IVPB ONE (13:47)
[2018-10-27] MEDS ORDERED: hydrALAZINE 20 MG/ML VIAL SLOW IVP PRN (13:47)
[2018-10-27] MEDS ORDERED: Fentanyl 100 MCG/2 ML VIAL SLOW IVP PRN (13:47)
[2018-10-27] MEDS ORDERED: Nitroglycerin 50 MG/250 ML BOT 250 ML IVPB PRN (13:47)
[2018-10-27] MEDS ORDERED: Bisacodyl 10 MG SUPP PR PRN (13:47)
[2018-10-27] MEDS ORDERED: Acetaminophen 325 MG TAB PO PRN (13:47)
[2018-10-27] MEDS ORDERED: Mag-Al 1200 mg/1200 mg/30 ML UDCUP PO PRN (13:47)
[2018-10-27] MEDS ORDERED: Promethazine HCl 25 MG/ML VIAL IM PRN (13:47)
[2018-10-27] MEDS ORDERED: Hetastarch 6% 500 ML 500 ML IVPB PRN (13:47)
[2018-10-27] MEDS ORDERED: Dextrose 5% in Water 1,000 ML IV PRN (13:56)
[2018-10-27] MEDS ORDERED: Dextrose 50% Abboject 50 ML SYRINGE SLOW IVP PRN (13:56)
[2018-10-27] MEDS: Sodium Chloride 0.9% 1,000 ML IV SCH ×2 (14:00→23:32)
[2018-10-27 14:23] LABS: INR-International Normal Ratio 1.6; Prothrombin Time 18.8 SEC (12.0-14.7)
[2018-10-27 14:27] LABS: Hemoglobin 12.5 g/dL (14.0-18.0); Mean Corpuscular HGB CONC 33.8 g/dL (32.0-36.0); Mean Corpuscular Hemoglobin 32.2 pg (27.0-31.0); Mean Corpuscular Volume 95.3 fL (78.0-98.0); Mean Platelet Volume 9.4 fL (7.4-10.4); Platelet Count 116 thou/uL (130-400); RBC Distribution Width 13.2 % (11.5-14.5); Red Blood Cell (RBC) Count 3.88 mill/uL (4.70-6.10); White Blood Cell (WBC) Count 9.6 thou/uL (4.8-10.8)
[2018-10-27 14:30] LABS: Actual Bicarbonate (HCO3a) 22.3 mEq/L (22-28); Base Excess (BEa) 0.5 mEq/L (-2.0 to +3.0); CO2 Tension 28.3 mmHg (35.0-45.0); Calcium, Ionized 1.13 mmol/L (1.12-1.30); Carboxyhemoglobin (COHb) 1.3 gm% (0.0-3.0); Hemoglobin (Hb) 13.6 g/dL (14.0-18.0); O2 Tension (PaO2) 130.2 mmHg (> 70.0); Potassium - ABG Lab 3.19 mmol/L (3.70-5.30); pH, Arterial 7.51 (7.35-7.45)
[2018-10-27] MEDS: DOBUTamine 500 mg/250 ml 250 ML IVPB SCH (14:35)
[2018-10-27 14:36] LABS: Anion Gap 11 mmol/L (10-20); BUN (Urea Nitrogen) 11 mg/dL (8.4-25.7); Calc. Creatinine Clearance 112 mL/min (70-130); Carbon Dioxide 22 mmol/L (23-31); Chloride 106 mmol/L (98-107); Estimated GFR-MDRD Greater than 90; Glucose 138 mg/dL (83-110); Magnesium 1.6 mg/dL (1.6-2.6); Potassium 3.2 mmol/L (3.5-5.1); Sodium 136 mmol/L (136-145)
[2018-10-27 14:37] LABS: Band 30 % (5-11); Eosinophils 2 % (0-10); Lymphocytes 5 % (21-51); MDiff Complete? YES; Metamyelocyte 1 % (0-0); Neutrophil 59 % (42-75); PLT Morphology Comment Appears Decreased; RBC Morphology Normal
[2018-10-27 14:39] LABS: ALV-art Gradient 190.925 (0-20); Puncture Site ART LINE
[2018-10-27] MEDS: Potassium Chloride 20 MEQ/100 ML PREMIX BAG IVPB PRN (14:54)
--- NOTE | 2018-10-27 16:08 | RAD ---
PORTABLE CHEST SUPINE ONE VIEW: HISTORY: A 72-year-old male with a history of postop open heart. FINDINGS: Recent postop midline sternotomy. Chest tubes in place with an endotracheal tube and a right subclav everett catheter. There is some minimal increased lucency in the right costophrenic angle. This could r epresent a small focal area of pneumothorax. IMPRESSION: 1. Recent postoperative midline sternotomy changes with endotracheal tube and right subclavian isi ters and chest tubes in place. 2. Minimal increased lucency in the right costophrenic angle. This could possibly represent a small pneumothorax. Short-term followup suggested. POS: [facility]
--- NOTE | 2018-10-27 16:51 | OP ---
DATE OF PROCEDURE: 10/27/2018 PROCEDURES PERFORMED: Coronary artery bypass grafting x4 with left internal mammary artery to the distal left anterior descending, reverse greater saphenous vein graft from the aorta to the first obtuse marginal, and sequential reverse saphenous vein graft from the aorta to the right coronary artery, to the distal posterior descending artery, and 5-Guatemalan left femoral arterial line placement with ultrasonographic guidance. PREOPERATIVE DIAGNOSES: Coronary artery disease with ischemic cardiomyopathy, status post [id number] myocardial infarction, and acute systolic heart failure. POSTOPERATIVE DIAGNOSES: Coronary artery disease with ischemic cardiomyopathy, status post [id number] myocardial infarction, and acute systolic heart failure. COMMUNITY SUPPORT WORKER: Ashkan. ANESTHESIA: General endotracheal anesthesia. INDICATIONS: The patient is a 72-year-old man, who over the last 3 or 4 weeks had been having epigastric discomfort, relieved by belching and over the last 1 to 2 weeks dependent edema and orthopnea. He was found to have an elevated troponin, which bam suggestive of a ims-TX-mrkaeuvhx myocardial infarction and a markedly elevated BNP. Cardiac catheterization demonstrated severe 3-vessel coronary artery disease with markedly decreased LV function with an LVEF in the 15% to 20% range. He has remained stable as he was diuresed and he is now taken to the operating room for surgical revascularization. FINDINGS: Pump time 96 minutes. Cross-clamp time 52 minutes. A good quality YANELI. Slightly small, but otherwise good quality greater saphenous vein. All the coronaries were diffusely diseased. The LAD were grafted distally was about a 1.5 to 2 mm vessel. The OM1 distally were grafted was about a 1.5 mm vessel, proximally it was rock hard, what appeared to represent an OM2 running parallel to the OM1 about 2 cm more posteriorly, but it was rock hard for almost all of its epicardial course. The PDA was about a 1.5 mm vessel was grafted distally. The RCA at the crux had some eccentric plaquing and was about 2.5 mm vessel. Bilateral pleural tubes were placed to drain known effusions, about 1500 mL of serous fluid was drained from the right chest and about 750 from the left. Pericardium was loosely closed. NARRATIVE REPORT: After informed consent was obtained, the patient was taken to the operating room, placed in supine position on the operating table. After the induction of general anesthesia, the patient's right upper chest was prepped and draped in sterile fashion. With the patient in Trendelenburg, a large-bore needle was used to cannulate the right subclavian vein and a triple-lumen central line kit was used to place a right subclavian central line by the Seldinger technique. All three ports easily aspirated and flushed. The line was secured. Ultrasonographic mapping of the greater saphenous vein in the left lower extremity was performed along with the femoral artery. The patient's torso, groins, and lower extremities were prepped and draped in sterile fashion. Saphenous vein was exposed at the distal left thigh and then using that as the port site was harvested endoscopically from groin to mid calf, and prepared for use as a graft. The port site was closed in layers of subcutaneous and subcuticular Vicryl. A 5-Guatemalan femoral sheath kit was used to place a left femoral arterial line at that point, where the common femoral artery had previously been mapped out ultrasonographically. It easily threaded, aspirated, and was flushed. It was secured with suture. This was done for ready access should the patient need a balloon pump successfully wean from bypass. A median sternotomy was performed. The left internal mammary artery was mobilized as a skeletonized in-situ graft from the level of the xiphoid to the level of the subclavian vein through an extrapleural exposure. The patient was heparinized and the mammary was ligated and divided distally. Papaverine solution was instilled intraluminally into the mammary after ligating and dividing it. The mammary bed was inspected for hemostasis. The hilar reflections of the left pleura were mobilized. YANELI retractor was placed with a Vargas retractor. The pericardium was opened and marsupialized. The aorta was palpated and was soft. A double concentric pursestring of 2 Ethibond was placed in ascending aorta just beyond the pericardial reflection and a single pursestring was placed in the fairly tense right atrial appendage. Aortic and venous cannulae were inserted and secured by their pursestrings. Cardiopulmonary bypass was instituted and the patient was systemically cooled. The heart, which was rather large and poorly contractile, was inspected and the vessels to be bypassed were identified. A longitudinal slit was made in the pericardium anterior to the left phrenic nerve through which the mammary could be passed. An aortic cross-clamp was applied and cardioplegia was administered through an aortic root needle. When arrest have been achieved, attention was turned to the right coronary system. The PDA was exposed and opened distally. Reverse greater saphenous vein was anastomosed there end-to-side with running Prolene suture. A 1 mm probe easily passed through both the heel and the toe of the anastomosis before securing the suture line. The anastomosis was tested by flushing cold cardioplegia down the graft. The right coronary artery was then opened at the crux and a [id number] anastomosis was constructed from the PDA graft to the right coronary artery at that point and was tested with cold cardioplegia. Attention was then turned to the circumflex system, 2 obtuse marginals fairly anterolaterally were readily identifiable. The OM1 appeared to be a better quality vessel, although somewhat small distally. It was of adequate size to accept a graft. The second obtuse marginal ran in close proximity to it and although for much of its length, it was a larger vessel. It was rock hard and very poor quality. The OM1 was opened distally and grafted end-to-side of the saphenous vein. The LAD was then opened distally at a relative soft spot making it relatively long arteriotomy across an island of plaque anteriorly. The mammary was generously spatulated and anastomosed there end-to-side with running 7-0 Prolene and tacked to the epicardium. The aortic cross-clamp was replaced with a partial occluding clamp and aortotomy was made in the ascending aorta with scalpel and punch incorporating the root needle site for the more proximal aortotomy. The sequential right coronary system graft was anastomosed to the more proximal aortotomy and the OM graft to the more distal aortotomy. The partial occluding clamp was removed and the vein grafts were de-aired. The bulldogs were removed from them. The proximal anastomoses were marked with small hemoclips. The anastomoses were inspected for hemostasis. The posterior pericardial drain was brought out through a separate incision and secured with suture. Right atrial and right ventricular temporary epicardial pacing wires were placed. A 28-Guatemalan chest tubes were placed in the either pleural space after using the Yankauer sucker to evacuate effusions. The patient was then from cardiopulmonary bypass slowly with the use of vasoactive drips. Although the patient's blood pressure was reasonable and remained stable off bypass, dobutamine was added to help improve contractility. The aortic and venous cannulae were removed and the pursestring secured. Protamine was administered when hemostasis was adequate. An anterior mediastinal drain was placed and the pericardium was loosely reapproximated over it. The sternum was treated with vancomycin paste and platelet-rich GPS. The sternum was then reapproximated with a combination of simple and [id number] #7 stainless steel wires. The fascia closed over the wire. The soft tissues were then irrigated and treated with platelet-poor GPS. The fascia was closed over the wires with #1 Vicryl. The subcutaneous tissues were reapproximated with 2-0 Vicryl and the skin was closed with 3-0 Vicryl subcuticular suture. The wounds were dressed and the patient was taken to the intensive care unit in stable condition. Job ID: [id number]
[2018-10-27] MEDS: Ondansetron PF 4 MG/2 ML Vial IVP PRN (17:13)
--- NOTE | 2018-10-27 17:30 | EKG ---
Test Reason : POST CABG Blood Pressure : / mmHG Vent. Rate : 042 BPM Atrial Rate : 042 BPM P-R Int : 188 ms QRS Dur : 118 ms QT Int : 524 ms P-R-T Axes : 049 005 -44 degrees QTc Int : 437 ms Marked sinus bradycardia Low voltage QRS Incomplete left bundle branch block Nonspecific ST and T wave abnormality , can not R/O inferior/inferolateral ischemic change. Abnormal ECG When compared with ECG of 24-OCT-2018 13:03, (Unconfirmed) Fusion complexes are no longer Present Premature ventricular complexes are no longer Present Vent. rate has decreased BY 32 BPM QT has shortened Confirmed by MELBA DOTY ([id number]) on 10/27/2018 5:30:04 PM Referred By: EDITH Confirmed By:MELBA DOTY
[2018-10-27 20:03] LABS: Hemoglobin 13.8 g/dL (14.0-18.0)
[2018-10-27] MEDS ORDERED: CEFAZOLIN 1 GM VIAL ONE (20:07)
[2018-10-27] MEDS ORDERED: Sterile Water 10 ML VIAL ONE ×2 (20:07)
[2018-10-27] MEDS ORDERED: Heparin 10,000 UNITS/ 10 ML VIAL ONE (20:07)
[2018-10-27] MEDS ORDERED: Ondansetron PF 4 MG/2 ML Vial ONE (20:07)
[2018-10-27] MEDS ORDERED: Vecuronium 10 MG VIAL ONE (20:07)
[2018-10-27] MEDS ORDERED: Dexamethasone 20 MG/5 ML VIAL ONE (20:07)
[2018-10-27] MEDS ORDERED: PROPOFOL 200 MG/20 ML VIAL ONE (20:07)
[2018-10-27 20:18] LABS: Potassium 4.2 mmol/L (3.5-5.1)
[2018-10-27] MEDS: Famotidine/PF 20 mg/2ml Vial SLOW IVP SCH (21:14)
[2018-10-27] MEDS: Fentanyl 100 MCG/2 ML VIAL SLOW IVP PRN ×2 (21:15→23:28)
[2018-10-27] MEDS: Insulin Regular 300 UNITS/3 ML VIAL SC PRN (21:22)
[2018-10-27] MEDS: Atorvastatin Calcium 40 MG TAB PO SCH (21:44)
[2018-10-27] MEDS: Docusate 100 MG CAP PO SCH (21:45)
[2018-10-28] MEDS: Fentanyl 100 MCG/2 ML VIAL SLOW IVP PRN ×3 (03:41→15:17)
[2018-10-28] MEDS: Ondansetron PF 4 MG/2 ML Vial IVP PRN (03:42)
[2018-10-28] MEDS: HYDROcodone/Acetaminophen 5/325 mg Tablet PO PRN ×3 (03:43→15:18)
[2018-10-28] MEDS: Sodium Chloride 0.9% 1,000 ML IV SCH ×2 (04:00→18:17)
[2018-10-28 04:30] LABS: #Basophils 0.1 thou/uL (0.0-0.2); #Lymphocytes 0.4 thou/uL (1.20-3.40); #Monocytes 0.8 thou/uL (0.11-0.59); #Neutrophils 12.1 thou/uL (1.40-6.50); %Basophils 1.1 % (0.0-1.0); %Eosinophils 0.1 % (0.0-10.0); %Lymphocytes 2.7 % (21.0-51.0); %Monocytes 5.9 % (0.0-10.0); %Neutrophils 90.3 % (42.0-75.0); Hemoglobin 12.3 g/dL (14.0-18.0); Mean Corpuscular HGB CONC 32.8 g/dL (32.0-36.0); Mean Corpuscular Hemoglobin 32.1 pg (27.0-31.0); Mean Corpuscular Volume 97.9 fL (78.0-98.0); Mean Platelet Volume 9.8 fL (7.4-10.4); Platelet Count 103 thou/uL (130-400); RBC Distribution Width 13.2 % (11.5-14.5); Red Blood Cell (RBC) Count 3.82 mill/uL (4.70-6.10); White Blood Cell (WBC) Count 13.4 thou/uL (4.8-10.8)
[2018-10-28 04:47] LABS: Anion Gap 17 mmol/L (10-20); BUN (Urea Nitrogen) 14 mg/dL (8.4-25.7); Calc. Creatinine Clearance 98 mL/min (70-130); Calcium 7.7 mg/dL (7.8-10.44); Carbon Dioxide 20 mmol/L (23-31); Chloride 108 mmol/L (98-107); Estimated GFR-MDRD 86; Glucose 128 mg/dL (83-110); Potassium 4.7 mmol/L (3.5-5.1); Sodium 140 mmol/L (136-145)
[2018-10-28] MEDS: DOBUTamine 500 mg/250 ml 250 ML IVPB SCH (07:31)
[2018-10-28] MEDS ORDERED: Metolazone 5 MG TAB PO SCH (08:00)
[2018-10-28] MEDS: Docusate 100 MG CAP PO SCH ×2 (08:46→20:31)
[2018-10-28] MEDS: Famotidine/PF 20 mg/2ml Vial SLOW IVP SCH ×2 (08:46→20:31)
[2018-10-28] MEDS ORDERED: Furosemide 40 MG/4 ML VIAL SLOW IVP SCH (09:00)
--- NOTE | 2018-10-28 09:01 | RAD ---
PORTABLE CHEST ONE VIEW: 10/28/2018 3:46 a.m. HISTORY: Postop open heart surgery. FINDINGS: The mildly increased lucency in the right costophrenic angle noted on the previous day's exam is not seen on the current exam. There has been interval removal of the endotracheal tube. The remainder o f the exam is otherwise stable. POS: GITA
[2018-10-28] MEDS: Potassium Chloride 20 MEQ TAB PO SCH ×2 (09:15→17:12)
[2018-10-28 10:32] LABS: Actual Bicarbonate (HCO3a) 26.8 mEq/L (22-28); Analyzer IN Cardio OR; Base Excess (BEa) 2.3 mEq/L (-2.0 to +3.0); CO2 Tension 41.3 mmHg (35.0-45.0); Calcium, Ionized 1.06 mmol/L (1.12-1.30); Carboxyhemoglobin (COHb) 1.1 gm% (0.0-3.0); Hemoglobin (Hb) 13.6 g/dL (14.0-18.0); O2 Tension (PaO2) 171.3 mmHg (> 70.0); Potassium - ABG Lab 2.74 mmol/L (3.70-5.30); pH, Arterial 7.43 (7.35-7.45)
[2018-10-28 10:32] LABS: Actual Bicarbonate (HCO3a) 30.2 mEq/L (22-28); Analyzer IN Cardio OR; Base Excess (BEa) 3.5 mEq/L (-2.0 to +3.0); Calcium, Ionized 1.01 mmol/L (1.12-1.30); Carboxyhemoglobin (COHb) 0.3 gm% (0.0-3.0); Hemoglobin (Hb) 10.6 g/dL (14.0-18.0); Potassium - ABG Lab 3.71 mmol/L (3.70-5.30); pH, Arterial 7.34 (7.35-7.45)
[2018-10-28 10:33] LABS: Actual Bicarbonate (HCO3a) 28.1 mEq/L (22-28); Analyzer IN Cardio OR; Base Excess (BEa) 1.4 mEq/L (-2.0 to +3.0); CO2 Tension 55.6 mmHg (35.0-45.0); Calcium, Ionized 1.03 mmol/L (1.12-1.30); Carboxyhemoglobin (COHb) 0.3 gm% (0.0-3.0); Hemoglobin (Hb) 9.7 g/dL (14.0-18.0); Potassium - ABG Lab 3.56 mmol/L (3.70-5.30); pH, Arterial 7.32 (7.35-7.45)
[2018-10-28 10:33] LABS: Actual Bicarbonate (HCO3v) 30 mEq/L (22-28); Analyzer IN Cardio OR; Base Excess 2.2 mEq/L (-2.0 to +3.0); Calcium, Ionized 1.04 mmol/L (1.16-1.32); Chloride (ABG LAB) 104 mmol/L (98-106); Hemoglobin (Hb) 9.8 g/dL (12.6-17.4); Potassium - ABG Lab 3.47 mmol/L (3.70-5.30); Sodium 135.6 mmol/L (133-146)
[2018-10-28 10:33] LABS: Actual Bicarbonate (HCO3a) 29.5 mEq/L (22-28); Analyzer IN Cardio OR; Base Excess (BEa) 2.5 mEq/L (-2.0 to +3.0); CO2 Tension 58.5 mmHg (35.0-45.0); Calcium, Ionized 1.03 mmol/L (1.12-1.30); Carboxyhemoglobin (COHb) 0.3 gm% (0.0-3.0); Hemoglobin (Hb) 9.9 g/dL (14.0-18.0); O2 Tension (PaO2) 440.6 mmHg (> 70.0); Potassium - ABG Lab 3.43 mmol/L (3.70-5.30); pH, Arterial 7.32 (7.35-7.45)
[2018-10-28 10:34] LABS: Actual Bicarbonate (HCO3a) 28.8 mEq/L (22-28); Base Excess (BEa) 1.8 mEq/L (-2.0 to +3.0); CO2 Tension 58.6 mmHg (35.0-45.0); Calcium, Ionized 1.04 mmol/L (1.12-1.30); Carboxyhemoglobin (COHb) 0.3 gm% (0.0-3.0); Hemoglobin (Hb) 9.9 g/dL (14.0-18.0); Potassium - ABG Lab 3.55 mmol/L (3.70-5.30); pH, Arterial 7.31 (7.35-7.45)
[2018-10-28 10:35] LABS: Actual Bicarbonate (HCO3a) 24.5 mEq/L (22-28); Analyzer IN Cardio OR; Base Excess (BEa) 1.7 mEq/L (-2.0 to +3.0); CO2 Tension 33.1 mmHg (35.0-45.0); Calcium, Ionized 1.13 mmol/L (1.12-1.30); Carboxyhemoglobin (COHb) 0.7 gm% (0.0-3.0); Hemoglobin (Hb) 12.6 g/dL (14.0-18.0); O2 Tension (PaO2) 264.6 mmHg (> 70.0); Potassium - ABG Lab 3.21 mmol/L (3.70-5.30); pH, Arterial 7.49 (7.35-7.45)
[2018-10-28 10:35] LABS: Actual Bicarbonate (HCO3a) 28.9 mEq/L (22-28); Analyzer IN Cardio OR; Base Excess (BEa) 2.3 mEq/L (-2.0 to +3.0); CO2 Tension 55.8 mmHg (35.0-45.0); Calcium, Ionized 1.45 mmol/L (1.12-1.30); Carboxyhemoglobin (COHb) 0.3 gm% (0.0-3.0); Hemoglobin (Hb) 9.7 g/dL (14.0-18.0); O2 Tension (PaO2) 495.4 mmHg (> 70.0); Potassium - ABG Lab 3.46 mmol/L (3.70-5.30); pH, Arterial 7.33 (7.35-7.45)
[2018-10-28 10:35] LABS: Actual Bicarbonate (HCO3v) 26 mEq/L (22-28); Analyzer IN Cardio OR; Base Excess 2.4 mEq/L (-2.0 to +3.0); Calcium, Ionized 1.17 mmol/L (1.16-1.32); Chloride (ABG LAB) 108 mmol/L (98-106); Hemoglobin (Hb) 9.4 g/dL (12.6-17.4); Potassium - ABG Lab 3.19 mmol/L (3.70-5.30); Sodium 138.5 mmol/L (133-146); pH (venous) 7.46 (7.32-7.43)
[2018-10-28 10:44] LABS: Puncture Site ALINE
[2018-10-28 10:45] LABS: Puncture Site ALINE
[2018-10-28 10:49] LABS: O2 Tension (PaO2) 507.4 mmHg (> 70.0)
[2018-10-28 10:50] LABS: Analyzer IN Cardio OR; Puncture Site ALINE
--- NOTE | 2018-10-28 11:09 | PDOC.PN ---
- Subjective Encounter Start Date: 10/28/18 Encounter Start Time: 09:45 Patient seen and examined. No new complaints. No overnight events pt has controlled surgical site pain - Objective Resuscitation Status - Order Detail: 10/22/18 22:26 Resuscitation Status Routine Resuscitation Status: FULL: Full Resuscitation MAR Reviewed: Yes Vital Signs & Weight: Vital Signs (12 hours) Temp 10/28/18 08:00 97.7 F 10/28/18 04:00 98.4 F 10/28/18 00:00 98.6 F Weight Admit Weight 209 lb 11.2 oz Weight 207 lb 14.334 oz Most Recent Monitor Data Heart Rate from ECG 78 NIBP 92/58 NIBP BP-Mean 69 Respiration from ECG 17 SpO2 100 I&O: 10/27/18 10/28/18 10/29/18 06:59 06:59 06:59 Intake Total 1660 2835.4 300 Output Total 1225 1540 170 Balance 435 1295.4 130 Result Diagrams: 10/28/18 04:23 10/28/18 04:23 Additional Labs: Accuchecks 10/28/18 10/28/18 10/28/18 09:29 03:58 00:34 POC Glucose 127 H 117 H 112 H 10/27/18 10/27/18 10/27/18 19:58 15:22 13:57 POC Glucose 129 H 108 131 H 10/27/18 10/27/18 10/27/18 13:02 12:32 11:48 POC Glucose 90 110 236 H 10/27/18 10/27/18 10/27/18 11:32 11:17 11:02 POC Glucose 129 H 140 H 157 H EKG Reviewed by me: Yes (nsr) Phys Exam - Physical Examination Constitutional: NAD HEENT: PERRLA, moist MMs, sclera anicteric Neck: no JVD, supple Respiratory: no wheezing, no rales, no rhonchi subclavian cental line, chest tube in place, a-line noted Cardiovascular: RRR, no significant murmur, no rub surgical site with dressing Gastrointestinal: soft, non-tender, no distention, positive bowel sounds Musculoskeletal: no edema, pulses present Neurological: non-focal, normal sensation Lymphatic: no nodes Psychiatric: normal affect, A&O x 3 Skin: no rash, normal turgor Dx/Plan (1) Acute systolic ACC/AHA stage C congestive heart failure Code(s): I50.21 - ACUTE SYSTOLIC (CONGESTIVE) HEART FAILURE Status: Acute (2) NSTEMI (non-ST elevated myocardial infarction) Code(s): I21.4 - NON-ST ELEVATION (NSTEMI) MYOCARDIAL INFARCTION Status: Acute (3) Severe mitral regurgitation Code(s): I34.0 - NONRHEUMATIC MITRAL (VALVE) INSUFFICIENCY Status: Acute (4) 3-vessel coronary artery disease Status: Acute Comment: s/p CABG (5) Hypokalemia Code(s): E87.6 - HYPOKALEMIA Status: Acute (6) Obesity (BMI 30.0-34.9) Code(s): E66.9 - OBESITY, UNSPECIFIED Status: Chronic - Plan cont current plan of care * medication reviewed as below * symptomatic treatment * continue post operative CABG protocol treatment. Review of Systems - Review of Systems ENT: negative: Ear Pain, Ear Discharge, Nose Pain, Nose Discharge, Nose Congestion, Mouth Pain, Mouth Swelling, Throat Pain, Throat Swelling, Other Respiratory: negative: Cough, Dry, Shortness of Breath, Hemoptysis, SOB with Excertion, Pleuritic Pain, Sputum, Wheezing Cardiovascular: negative: chest pain, palpitations, orthopnea, paroxysmal nocturnal dyspnea, edema, light headedness, other Gastrointestinal: negative: Nausea, Vomiting, Abdominal Pain, Diarrhea, Constipation, Melena, Hematochezia, Other Genitourinary: negative: Dysuria, Frequency, Incontinence, Hematuria, Retention , Other Musculoskeletal: negative: Neck Pain, Shoulder Pain, Arm Pain, Back Pain, Hand Pain, Leg Pain, Foot Pain, Other Skin: negative: Rash, Lesions, Valerio, Bruising, Other - Medications/Allergies Allergies/Adverse Reactions: Allergies Allergy/AdvReac Type Severity Reaction Status Date / Time No Known Allergies Allergy Unverified 10/22/18 22:37 Medications: Current Medications Acetaminophen (Tylenol) 650 mg PO Q6H PRN PRN Reason: Headache/Fever Or Mild Pain Hydrocodone Bitart/Acetaminophen (Clark 5/325) 1 tab PO Q4H PRN PRN Reason: Moderate Pain (4-6) Hydrocodone Bitart/Acetaminophen (Clark 5/325) 2 tab PO Q4H PRN PRN Reason: Severe Pain (7-10) Last Admin: 12/18/18 08:46 Dose: 2 tab Al Hydroxide/Mg Hydroxide (Maalox) 30 ml PO Q4H PRN PRN Reason: Indigestion Albumin Human (Albumin 5%) 12.5 gm IVPB Q6H PRN PRN Reason: To Maintain SBP> 90 mmHG Stop: 10/28/18 13:48 Albumin Human (Albumin 5%) 25 gm IVPB Q6H PRN PRN Reason: To Maintain SBP > 90 mmHG Stop: 10/28/18 13:48 Last Admin: 10/28/18 03:30 Dose: 25 gm Albuterol/Ipratropium (Duoneb) 3 ml NEB [id number] PRN PRN Reason: SHORTNESS OF BREATH Aspirin (Aspirin Chewable) 81 mg PO DAILY [facility] Last Admin: 10/28/18 08:46 Dose: 81 mg Atorvastatin Calcium (Lipitor) 40 mg PO HS [facility] Last Admin: 10/27/18 21:44 Dose: Not Given Bisacodyl (Dulcolax) 10 mg PO Q12H PRN PRN Reason: Constipation Bisacodyl (Dulcolax) 10 mg DC Q12H PRN PRN Reason: Constipation Dextrose/Water (Dextrose 50%) 25 gm SLOW IVP PRN PRN PRN Reason: PER HYPOGLYCEMIC PROTOCOL Docusate Sodium (Colace) 100 mg PO BID [facility] Last Admin: 10/28/18 08:46 Dose: 100 mg Famotidine (Pepcid) 20 mg SLOW IVP Q12HR [facility] Last Admin: 10/28/18 08:46 Dose: 20 mg Fentanyl (Sublimaze) 25 mcg SLOW IVP Q2H PRN PRN Reason: Moderate Pain (4-6) Stop: 10/29/18 13:28 Fentanyl (Sublimaze) 50 mcg SLOW IVP Q2H PRN PRN Reason: Severe Pain (7-10) Stop: 10/29/18 13:28 Last Admin: 10/28/18 08:44 Dose: 50 mcg Furosemide (Lasix) 40 mg SLOW IVP Q12H [facility] Stop: 10/28/18 21:01 Last Admin: 10/28/18 09:14 Dose: 40 mg Glucagon (Glucagon) 1 mg SC PRN PRN PRN Reason: PER HYPOGLYCEMIC PROTOCOL Guaifenesin/Dextromethorphan (Robitussin Dm) 15 ml PO Q4H PRN PRN Reason: Cough Hydralazine HCl (Apresoline) 10 mg SLOW IVP Q6H PRN PRN Reason: To Maintain SBP< 140mmHG Dobutamine HCl/Dextrose (Dobutamine 500 Mg/250 Ml) 250 mls @ 13.751 mls/hr IVPB INF SINGH; Protocol Last Admin: 10/28/18 07:31 Dose: 250 mls Hetastarch/Sodium Chloride (Hespan) 500 mls @ 0 mls/hr IVPB PRN PRN PRN Reason: To Maintain SBP > 90mmHg Stop: 10/28/18 13:28 Norepinephrine Bitartrate (Levophed) 250 mls @ 0 mls/hr IVPB PRN PRN; Protocol PRN Reason: To maintain SBP > 90 mmHG Nicardipine HCl 25 mg/ Sodium (Chloride) 250 mls @ 0 mls/hr IVPB INF PRN; Protocol PRN Reason: To Maintain SBP< 140mmHG Nitroglycerin/Dextrose (Nitroglycerin 50 Mg/250 Ml Bot) 250 mls @ 0 mls/hr IVPB PRN PRN; Protocol PRN Reason: To Maintain SBP< 140mmHG Sodium Chloride (Normal Saline 0.9%) 1,000 mls @ 75 mls/hr IV .[id number] SINGH Last Admin: 10/28/18 04:00 Dose: Not Given Insulin Human Regular 100 (units/ Sodium Chloride) 101 mls @ 0 mls/hr IVPB INF SINGH; Protocol Dextrose/Water (D5w) 1,000 mls @ 0 mls/hr IV INF PRN PRN Reason: PRN HYPOGLYCEMIC PROTOCOL Insulin Human Regular (Humulin R) 0 units SC Q4H PRN; Protocol PRN Reason: POST OP SLIDING SCALE Last Admin: 10/27/18 21:22 Dose: 2 unit Morphine Sulfate (Morphine) 2 mg SLOW IVP Q15MIN PRN PRN Reason: Severe Pain (7-10) Ondansetron HCl (Zofran) 4 mg IVP Q6H PRN PRN Reason: Nausea/Vomiting Last Admin: 10/28/18 03:42 Dose: 4 mg Potassium Chloride (Kcl) 20 meq IVPB PRN PRN PRN Reason: K level </= 4.0 Last Admin: 10/27/18 14:54 Dose: 20 meq Potassium Chloride (K-Dur) 40 meq PO BID-WM [facility] Stop: 10/28/18 17:01 Last Admin: 10/28/18 09:15 Dose: 40 meq Promethazine HCl (Phenergan) 6.25 mg IM Q4H PRN PRN Reason: Nausea/Vomiting Sodium Chloride (Flush - Normal Saline) 10 ml IVF Q12HR [facility] Last Admin: 10/28/18 09:15 Dose: 10 ml
[2018-10-28] MEDS ORDERED: Furosemide 100 MG/10 ML VIAL IVPB SCH ×2 (11:45→18:00)
[2018-10-28 12:09] LABS: Puncture Site ALINE
[2018-10-28 12:13] LABS: O2 Tension (PaO2) 580.2 mmHg (> 70.0); Puncture Site ALINE
[2018-10-28 12:14] LABS: O2 Tension (PaO2) 517.9 mmHg (> 70.0); Puncture Site ALINE
[2018-10-28 12:15] LABS: Puncture Site ALINE
[2018-10-28] MEDS: Atorvastatin Calcium 40 MG TAB PO SCH (20:31)
[2018-10-28] MEDS: Insulin Regular 300 UNITS/3 ML VIAL SC PRN ×2 (20:33→23:37)
[2018-10-28] MEDS: Norepinephrine 8 MG/0.9% NS 250 ML IVPB PRN (23:11)
[2018-10-29] MEDS: HYDROcodone/Acetaminophen 5/325 mg Tablet PO PRN ×2 (03:24→09:29)
[2018-10-29] MEDS: DOBUTamine 500 mg/250 ml 250 ML IVPB SCH ×2 (03:29→22:53)
[2018-10-29 05:28] LABS: Anion Gap 12 mmol/L (10-20); BUN (Urea Nitrogen) 25 mg/dL (8.4-25.7); Calc. Creatinine Clearance 53 mL/min (70-130); Calcium 7.9 mg/dL (7.8-10.44); Carbon Dioxide 24 mmol/L (23-31); Chloride 103 mmol/L (98-107); Estimated GFR-MDRD 41; Glucose 104 mg/dL (83-110); Potassium 4.7 mmol/L (3.5-5.1); Sodium 134 mmol/L (136-145)
[2018-10-29 05:30] LABS: Band 2 % (5-11); Hemoglobin 12.1 g/dL (14.0-18.0); Hypochromia SLIGHT = 6-15 cells (100X) (0-5/hpf); Lymphocytes 3 % (21-51); MDiff Complete? YES; Mean Corpuscular HGB CONC 31.7 g/dL (32.0-36.0); Mean Corpuscular Hemoglobin 31.2 pg (27.0-31.0); Mean Corpuscular Volume 98.3 fL (78.0-98.0); Mean Platelet Volume 9.5 fL (7.4-10.4); Monocytes 2 % (0-10); Neutrophil 93 % (42-75); PLT Morphology Comment Appears Adequate; Platelet Count 139 thou/uL (130-400); RBC Distribution Width 13.4 % (11.5-14.5); Red Blood Cell (RBC) Count 3.87 mill/uL (4.70-6.10); White Blood Cell (WBC) Count 14.9 thou/uL (4.8-10.8)
[2018-10-29] MEDS ORDERED: Metolazone 5 MG TAB PO SCH (07:00)
--- NOTE | 2018-10-29 08:38 | RAD ---
PORTABLE SEMIUPRIGHT FRONTAL CHEST RADIOGRAPH: 10/29/2018 HISTORY: Evaluate chest following open heart surgery. COMPARISON: 10/28/2018 FINDINGS: Stable right-sided vascular catheter, bilateral chest tubes, midline sternotomy wires, and mediastina l clips. A small pneumothorax is suspected in the left lung apex. There is hazy increased density in the right perihilar region in both lung bases, suggesting volume l oss, infiltrate, and/or pleural fluid. IMPRESSION: 1. Lines and tubes as above. 2. Small left apical pneumothorax suspected. 3. Increased density in the lung bases may signify volume loss, pleural fluid, infectious pneumoniti s, or edema. Recommend follow-up imaging following treatment to document resolution. POS: GITA
[2018-10-29] MEDS: Furosemide 100 MG/10 ML VIAL SLOW IVP SCH ×2 (09:14→14:27)
[2018-10-29] MEDS: Sodium Chloride 0.9% 1,000 ML IV SCH ×2 (09:15→21:41)
[2018-10-29] MEDS: Docusate 100 MG CAP PO SCH ×2 (09:15→21:00)
[2018-10-29] MEDS: Famotidine/PF 20 mg/2ml Vial SLOW IVP SCH ×2 (09:15→21:01)
--- NOTE | 2018-10-29 10:00 | PDOC.PN ---
- Subjective Encounter Start Date: 10/29/18 Encounter Start Time: 09:10 Patient seen and examined. No new complaints. No overnight events on levophed and dobutamine drip - Objective Resuscitation Status - Order Detail: 10/22/18 22:26 Resuscitation Status Routine Resuscitation Status: FULL: Full Resuscitation MAR Reviewed: Yes Vital Signs & Weight: Vital Signs (12 hours) Temp 10/29/18 07:00 98.4 F 10/29/18 04:00 97.8 F 10/29/18 00:00 98.2 F Weight Admit Weight 209 lb 11.2 oz Weight 207 lb 3.752 oz Most Recent Monitor Data Heart Rate from ECG 81 NIBP 99/67 NIBP BP-Mean 77 Respiration from ECG 25 SpO2 99 I&O: 10/28/18 10/29/18 10/30/18 06:59 06:59 06:59 Intake Total 2835.4 1694.3 50 Output Total 1540 1360 15 Balance 1295.4 334.3 35 Result Diagrams: 10/29/18 05:00 10/29/18 05:00 Additional Labs: Accuchecks 10/29/18 10/28/18 10/28/18 04:54 23:35 20:30 POC Glucose 102 122 H 141 H Radiology Reviewed by me: Yes (chest xray reivewed) EKG Reviewed by me: Yes (nsr) Phys Exam - Physical Examination Constitutional: NAD HEENT: PERRLA, moist MMs, sclera anicteric Neck: no JVD, supple Respiratory: no wheezing, no rales, no rhonchi central line Cardiovascular: RRR, no significant murmur, no rub surgical site with dressing Gastrointestinal: soft, non-tender, no distention, positive bowel sounds Musculoskeletal: no edema, pulses present Neurological: non-focal, normal sensation Lymphatic: no nodes Psychiatric: normal affect, A&O x 3 Skin: no rash, normal turgor Dx/Plan (1) Acute systolic ACC/AHA stage C congestive heart failure Code(s): I50.21 - ACUTE SYSTOLIC (CONGESTIVE) HEART FAILURE Status: Acute (2) NSTEMI (non-ST elevated myocardial infarction) Code(s): I21.4 - NON-ST ELEVATION (NSTEMI) MYOCARDIAL INFARCTION Status: Acute (3) Severe mitral regurgitation Code(s): I34.0 - NONRHEUMATIC MITRAL (VALVE) INSUFFICIENCY Status: Acute (4) 3-vessel coronary artery disease Status: Acute Comment: s/p CABG (5) Hypokalemia Code(s): E87.6 - HYPOKALEMIA Status: Acute (6) Obesity (BMI 30.0-34.9) Code(s): E66.9 - OBESITY, UNSPECIFIED Status: Chronic - Plan cont current plan of care * medication reviewed as below * symptomatic treatment * continue post cabg protocol treatment * continue diuresis as tolerated. Review of Systems - Review of Systems ENT: negative: Ear Pain, Ear Discharge, Nose Pain, Nose Discharge, Nose Congestion, Mouth Pain, Mouth Swelling, Throat Pain, Throat Swelling, Other Respiratory: negative: Cough, Dry, Shortness of Breath, Hemoptysis, SOB with Excertion, Pleuritic Pain, Sputum, Wheezing Cardiovascular: negative: chest pain, palpitations, orthopnea, paroxysmal nocturnal dyspnea, edema, light headedness, other Gastrointestinal: negative: Nausea, Vomiting, Abdominal Pain, Diarrhea, Constipation, Melena, Hematochezia, Other Genitourinary: negative: Dysuria, Frequency, Incontinence, Hematuria, Retention , Other Musculoskeletal: negative: Neck Pain, Shoulder Pain, Arm Pain, Back Pain, Hand Pain, Leg Pain, Foot Pain, Other Skin: negative: Rash, Lesions, Valerio, Bruising, Other - Medications/Allergies Allergies/Adverse Reactions: Allergies Allergy/AdvReac Type Severity Reaction Status Date / Time No Known Allergies Allergy Unverified 10/22/18 22:37 Medications: Current Medications Acetaminophen (Tylenol) 650 mg PO Q6H PRN PRN Reason: Headache/Fever Or Mild Pain Hydrocodone Bitart/Acetaminophen ([place] 5/325) 1 tab PO Q4H PRN PRN Reason: Moderate Pain (4-6) Last Admin: 10/29/18 09:29 Dose: 1 tab Hydrocodone Bitart/Acetaminophen ([place] 5/325) 2 tab PO Q4H PRN PRN Reason: Severe Pain (7-10) Last Admin: 10/28/18 15:18 Dose: 2 tab Al Hydroxide/Mg Hydroxide (Maalox) 30 ml PO Q4H PRN PRN Reason: Indigestion Albuterol/Ipratropium (Duoneb) 3 ml NEB [id number] PRN PRN Reason: SHORTNESS OF BREATH Aspirin (Aspirin Chewable) 81 mg PO DAILY [facility] Last Admin: 10/29/18 09:15 Dose: 81 mg Atorvastatin Calcium (Lipitor) 40 mg PO HS [facility] Last Admin: 10/28/18 20:31 Dose: 40 mg Bisacodyl (Dulcolax) 10 mg PO Q12H PRN PRN Reason: Constipation Bisacodyl (Dulcolax) 10 mg SC Q12H PRN PRN Reason: Constipation Dextrose/Water (Dextrose 50%) 25 gm SLOW IVP PRN PRN PRN Reason: PER HYPOGLYCEMIC PROTOCOL Docusate Sodium (Colace) 100 mg PO BID [facility] Last Admin: 10/29/18 09:15 Dose: 100 mg Famotidine (Pepcid) 20 mg SLOW IVP Q12HR [facility] Last Admin: 10/29/18 09:15 Dose: 20 mg Fentanyl (Sublimaze) 25 mcg SLOW IVP Q2H PRN PRN Reason: Moderate Pain (4-6) Stop: 10/29/18 13:28 Fentanyl (Sublimaze) 50 mcg SLOW IVP Q2H PRN PRN Reason: Severe Pain (7-10) Stop: 10/29/18 13:28 Last Admin: 10/28/18 15:17 Dose: 50 mcg Furosemide (Lasix) 80 mg SLOW IVP 0800,1400 [facility] Stop: 10/29/18 14:01 Last Admin: 10/29/18 09:14 Dose: 80 mg Glucagon (Glucagon) 1 mg SC PRN PRN PRN Reason: PER HYPOGLYCEMIC PROTOCOL Guaifenesin/Dextromethorphan (Robitussin Dm) 15 ml PO Q4H PRN PRN Reason: Cough Hydralazine HCl (Apresoline) 10 mg SLOW IVP Q6H PRN PRN Reason: To Maintain SBP< 140mmHG Dobutamine HCl/Dextrose (Dobutamine 500 Mg/250 Ml) 250 mls @ 13.751 mls/hr IVPB INF [facility]; Protocol Last Admin: 10/29/18 03:29 Dose: 250 mls Norepinephrine Bitartrate (Levophed) 250 mls @ 0 mls/hr IVPB PRN PRN; Protocol PRN Reason: To maintain SBP > 90 mmHG Last Admin: 10/28/18 23:11 Dose: 250 mls Nicardipine HCl 25 mg/ Sodium (Chloride) 250 mls @ 0 mls/hr IVPB INF PRN; Protocol PRN Reason: To Maintain SBP< 140mmHG Nitroglycerin/Dextrose (Nitroglycerin 50 Mg/250 Ml Bot) 250 mls @ 0 mls/hr IVPB PRN PRN; Protocol PRN Reason: To Maintain SBP< 140mmHG Sodium Chloride (Normal Saline 0.9%) 1,000 mls @ 75 mls/hr IV .[id number] [facility] Last Admin: 10/29/18 09:15 Dose: Not Given Insulin Human Regular 100 (units/ Sodium Chloride) 101 mls @ 0 mls/hr IVPB INF [facility]; Protocol Dextrose/Water (D5w) 1,000 mls @ 0 mls/hr IV INF PRN PRN Reason: PRN HYPOGLYCEMIC PROTOCOL Insulin Human Regular (Humulin R) 0 units SC Q4H PRN; Protocol PRN Reason: POST OP SLIDING SCALE Last Admin: 10/28/18 23:37 Dose: 2 unit Morphine Sulfate (Morphine) 2 mg SLOW IVP Q15MIN PRN PRN Reason: Severe Pain (7-10) Ondansetron HCl (Zofran) 4 mg IVP Q6H PRN PRN Reason: Nausea/Vomiting Last Admin: 10/28/18 03:42 Dose: 4 mg Potassium Chloride (Kcl) 20 meq IVPB PRN PRN PRN Reason: K level </= 4.0 Last Admin: 10/27/18 14:54 Dose: 20 meq Promethazine HCl (Phenergan) 6.25 mg IM Q4H PRN PRN Reason: Nausea/Vomiting Sodium Chloride (Flush - Normal Saline) 10 ml IVF Q12HR [facility] Last Admin: 10/29/18 09:16 Dose: 10 ml
[2018-10-29] MEDS: Norepinephrine 8 MG/0.9% NS 250 ML IVPB PRN (12:34)
[2018-10-29] MEDS: Atorvastatin Calcium 40 MG TAB PO SCH (21:01)
[2018-10-30] MEDS: Ondansetron PF 4 MG/2 ML Vial IVP PRN (02:00)
[2018-10-30 04:45] LABS: #Eosinphils 0.1 thou/uL (0.0-0.7); #Lymphocytes 0.6 thou/uL (1.20-3.40); #Monocytes 1.1 thou/uL (0.11-0.59); #Neutrophils 9.9 thou/uL (1.40-6.50); %Basophils 0.3 % (0.0-1.0); %Eosinophils 0.6 % (0.0-10.0); %Lymphocytes 5.2 % (21.0-51.0); %Monocytes 9.3 % (0.0-10.0); %Neutrophils 84.6 % (42.0-75.0); Hemoglobin 11.9 g/dL (14.0-18.0); Mean Corpuscular HGB CONC 33.1 g/dL (32.0-36.0); Mean Corpuscular Volume 96.6 fL (78.0-98.0); Mean Platelet Volume 9.3 fL (7.4-10.4); Platelet Count 127 thou/uL (130-400); RBC Distribution Width 13.2 % (11.5-14.5); Red Blood Cell (RBC) Count 3.72 mill/uL (4.70-6.10); White Blood Cell (WBC) Count 11.6 thou/uL (4.8-10.8)
[2018-10-30 04:57] LABS: Anion Gap 13 mmol/L (10-20); BUN (Urea Nitrogen) 27 mg/dL (8.4-25.7); Calc. Creatinine Clearance 66 mL/min (70-130); Calcium 8.2 mg/dL (7.8-10.44); Carbon Dioxide 28 mmol/L (23-31); Chloride 100 mmol/L (98-107); Estimated GFR-MDRD 53; Glucose 109 mg/dL (83-110); Potassium 3.8 mmol/L (3.5-5.1); Sodium 137 mmol/L (136-145)
[2018-10-30] MEDS: HYDROcodone/Acetaminophen 5/325 mg Tablet PO PRN (05:05)
[2018-10-30] MEDS: Norepinephrine 8 MG/0.9% NS 250 ML IVPB PRN (05:16)
[2018-10-30] MEDS: Sodium Chloride 0.9% 1,000 ML IV SCH ×2 (08:19→20:47)
--- NOTE | 2018-10-30 09:14 | RAD ---
CHEST 1 VIEW: Date: 10/30/18 HISTORY: Post open heart surgery. COMPARISON: Radiograph prior day. FINDINGS: Right side thoracostomy tube has been slightly retracted. Trace left apical pneumothorax slightly imp roved. Left basilar thoracostomy tube is similar. Subclavian central venous catheter is similar. Mild atelectatic changes lung bases. IMPRESSION: Similar appearance of chest. POS: [facility]
[2018-10-30] MEDS: Famotidine/PF 20 mg/2ml Vial SLOW IVP SCH ×2 (09:21→20:47)
[2018-10-30] MEDS: Docusate 100 MG CAP PO SCH ×2 (09:21→20:47)
[2018-10-30] MEDS: Potassium Chloride 20 MEQ/100 ML PREMIX BAG IVPB PRN (10:01)
--- NOTE | 2018-10-30 11:54 | PDOC.PN ---
- Subjective Encounter Start Date: 10/30/18 Encounter Start Time: 10:00 pt is on low dose levophed and dobutamine drip, he is seated in chair, - Objective Resuscitation Status - Order Detail: 10/22/18 22:26 Resuscitation Status Routine Resuscitation Status: FULL: Full Resuscitation MAR Reviewed: Yes Vital Signs & Weight: Vital Signs (12 hours) Temp Pulse Ox 10/30/18 07:00 98.3 F 10/30/18 06:55 97 10/30/18 04:00 98.1 F 10/30/18 00:00 99.1 F Weight Admit Weight 209 lb 11.2 oz Weight 207 lb 3.752 oz Most Recent Monitor Data Heart Rate from ECG 79 NIBP 105/62 NIBP BP-Mean 76 Respiration from ECG 29 SpO2 98 I&O: 10/29/18 10/30/18 10/31/18 06:59 06:59 06:59 Intake Total 1694.3 1454 Output Total 1360 3920 385 Balance 334.3 -7814 -385 Result Diagrams: 10/30/18 04:27 10/30/18 04:27 Additional Labs: Accuchecks 10/29/18 12:12 POC Glucose 109 Radiology Reviewed by me: Yes (chest xray reviewed ) EKG Reviewed by me: Yes (nsr) Phys Exam - Physical Examination Constitutional: NAD HEENT: PERRLA, moist MMs, sclera anicteric Neck: no JVD, supple Respiratory: no wheezing, no rales, no rhonchi chest tube in place Cardiovascular: RRR, no significant murmur, no rub Gastrointestinal: soft, non-tender, no distention, positive bowel sounds Musculoskeletal: no edema, pulses present Neurological: non-focal, normal sensation Lymphatic: no nodes Psychiatric: normal affect Skin: no rash, normal turgor Dx/Plan (1) Acute systolic ACC/AHA stage C congestive heart failure Code(s): I50.21 - ACUTE SYSTOLIC (CONGESTIVE) HEART FAILURE Status: Acute (2) NSTEMI (non-ST elevated myocardial infarction) Code(s): I21.4 - NON-ST ELEVATION (NSTEMI) MYOCARDIAL INFARCTION Status: Acute (3) Severe mitral regurgitation Code(s): I34.0 - NONRHEUMATIC MITRAL (VALVE) INSUFFICIENCY Status: Acute (4) 3-vessel coronary artery disease Status: Acute Comment: s/p CABG (5) Hypokalemia Code(s): E87.6 - HYPOKALEMIA Status: Acute (6) Obesity (BMI 30.0-34.9) Code(s): E66.9 - OBESITY, UNSPECIFIED Status: Chronic - Plan cont current plan of care * medication reviewed as below * symptomatic treatment * continue post operative care as per cardiovascular surgeon * cardiology on case * will monitor. Review of Systems - Review of Systems ENT: negative: Ear Pain, Ear Discharge, Nose Pain, Nose Discharge, Nose Congestion, Mouth Pain, Mouth Swelling, Throat Pain, Throat Swelling, Other Respiratory: negative: Cough, Dry, Shortness of Breath, Hemoptysis, SOB with Excertion, Pleuritic Pain, Sputum, Wheezing Cardiovascular: negative: chest pain, palpitations, orthopnea, paroxysmal nocturnal dyspnea, edema, light headedness, other Gastrointestinal: negative: Nausea, Vomiting, Abdominal Pain, Diarrhea, Constipation, Melena, Hematochezia, Other Genitourinary: negative: Dysuria, Frequency, Incontinence, Hematuria, Retention , Other Musculoskeletal: negative: Neck Pain, Shoulder Pain, Arm Pain, Back Pain, Hand Pain, Leg Pain, Foot Pain, Other Skin: negative: Rash, Lesions, Valerio, Bruising, Other - Medications/Allergies Allergies/Adverse Reactions: Allergies Allergy/AdvReac Type Severity Reaction Status Date / Time No Known Allergies Allergy Unverified 10/22/18 22:37 Medications: Current Medications Acetaminophen (Tylenol) 650 mg PO Q6H PRN PRN Reason: Headache/Fever Or Mild Pain Hydrocodone Bitart/Acetaminophen ([place] 5/325) 1 tab PO Q4H PRN PRN Reason: Moderate Pain (4-6) Last Admin: 10/30/18 05:05 Dose: 1 tab Hydrocodone Bitart/Acetaminophen ([place] 5/325) 2 tab PO Q4H PRN PRN Reason: Severe Pain (7-10) Last Admin: 10/28/18 15:18 Dose: 2 tab Al Hydroxide/Mg Hydroxide (Maalox) 30 ml PO Q4H PRN PRN Reason: Indigestion Albuterol/Ipratropium (Duoneb) 3 ml NEB [id number] PRN PRN Reason: SHORTNESS OF BREATH Aspirin (Aspirin Chewable) 81 mg PO DAILY [facility] Last Admin: 10/30/18 09:21 Dose: 81 mg Atorvastatin Calcium (Lipitor) 40 mg PO HS [facility] Last Admin: 10/29/18 21:01 Dose: 40 mg Bisacodyl (Dulcolax) 10 mg PO Q12H PRN PRN Reason: Constipation Bisacodyl (Dulcolax) 10 mg [place] Q12H PRN PRN Reason: Constipation Dextrose/Water (Dextrose 50%) 25 gm SLOW IVP PRN PRN PRN Reason: PER HYPOGLYCEMIC PROTOCOL Docusate Sodium (Colace) 100 mg PO BID [facility] Last Admin: 10/30/18 09:21 Dose: 100 mg Famotidine (Pepcid) 20 mg SLOW IVP Q12HR [facility] Last Admin: 10/30/18 09:21 Dose: 20 mg Glucagon (Glucagon) 1 mg SC PRN PRN PRN Reason: PER HYPOGLYCEMIC PROTOCOL Guaifenesin/Dextromethorphan (Robitussin Dm) 15 ml PO Q4H PRN PRN Reason: Cough Hydralazine HCl (Apresoline) 10 mg SLOW IVP Q6H PRN PRN Reason: To Maintain SBP< 140mmHG Dobutamine HCl/Dextrose (Dobutamine 500 Mg/250 Ml) 250 mls @ 13.751 mls/hr IVPB INF [facility]; Protocol Last Admin: 10/29/18 22:53 Dose: 250 mls Norepinephrine Bitartrate (Levophed) 250 mls @ 0 mls/hr IVPB PRN PRN; Protocol PRN Reason: To maintain SBP > 90 mmHG Last Admin: 10/30/18 05:16 Dose: 250 mls Nicardipine HCl 25 mg/ Sodium (Chloride) 250 mls @ 0 mls/hr IVPB INF PRN; Protocol PRN Reason: To Maintain SBP< 140mmHG Nitroglycerin/Dextrose (Nitroglycerin 50 Mg/250 Ml Bot) 250 mls @ 0 mls/hr IVPB PRN PRN; Protocol PRN Reason: To Maintain SBP< 140mmHG Sodium Chloride (Normal Saline 0.9%) 1,000 mls @ 75 mls/hr IV .[id number] [facility] Last Admin: 10/30/18 08:19 Dose: Not Given Insulin Human Regular 100 (units/ Sodium Chloride) 101 mls @ 0 mls/hr IVPB INF [facility]; Protocol Dextrose/Water (D5w) 1,000 mls @ 0 mls/hr IV INF PRN PRN Reason: PRN HYPOGLYCEMIC PROTOCOL Insulin Human Regular (Humulin R) 0 units SC Q4H PRN; Protocol PRN Reason: POST OP SLIDING SCALE Last Admin: 10/28/18 23:37 Dose: 2 unit Morphine Sulfate (Morphine) 2 mg SLOW IVP Q15MIN PRN PRN Reason: Severe Pain (7-10) Ondansetron HCl (Zofran) 4 mg IVP Q6H PRN PRN Reason: Nausea/Vomiting Last Admin: 10/30/18 02:00 Dose: 4 mg Potassium Chloride (Kcl) 20 meq IVPB PRN PRN PRN Reason: K level </= 4.0 Last Admin: 10/30/18 10:01 Dose: 20 meq Promethazine HCl (Phenergan) 6.25 mg IM Q4H PRN PRN Reason: Nausea/Vomiting Sodium Chloride (Flush - Normal Saline) 10 ml IVF Q12HR [facility] Last Admin: 10/30/18 09:22 Dose: 10 ml
[2018-10-30] MEDS: Atorvastatin Calcium 40 MG TAB PO SCH (20:47)
[2018-10-30] MEDS: DOBUTamine 500 mg/250 ml 250 ML IVPB SCH (20:48)
[2018-10-31 04:31] LABS: #Eosinphils 0.3 thou/uL (0.0-0.7); #Neutrophils 7.5 thou/uL (1.40-6.50); %Basophils 0.2 % (0.0-1.0); %Eosinophils 2.9 % (0.0-10.0); %Lymphocytes 9.7 % (21.0-51.0); %Neutrophils 77.2 % (42.0-75.0); Hemoglobin 11.8 g/dL (14.0-18.0); Mean Corpuscular HGB CONC 33.2 g/dL (32.0-36.0); Mean Corpuscular Hemoglobin 31.9 pg (27.0-31.0); Mean Corpuscular Volume 96.1 fL (78.0-98.0); Mean Platelet Volume 9.2 fL (7.4-10.4); Platelet Count 143 thou/uL (130-400); White Blood Cell (WBC) Count 9.7 thou/uL (4.8-10.8)
[2018-10-31 04:51] LABS: Anion Gap 12 mmol/L (10-20); BUN (Urea Nitrogen) 23 mg/dL (8.4-25.7); Calc. Creatinine Clearance 90 mL/min (70-130); Calcium 8.3 mg/dL (7.8-10.44); Carbon Dioxide 30 mmol/L (23-31); Chloride 100 mmol/L (98-107); Estimated GFR-MDRD 76; Glucose 95 mg/dL (83-110); Potassium 3.7 mmol/L (3.5-5.1); Sodium 138 mmol/L (136-145)
[2018-10-31] MEDS: Potassium Chloride 20 MEQ/100 ML PREMIX BAG IVPB PRN (06:22)
[2018-10-31] MEDS ORDERED: Metolazone 5 MG TAB PO SCH (07:15)
[2018-10-31] MEDS ORDERED: Furosemide 40 MG/4 ML VIAL SLOW IVP SCH ×3 (08:00→14:00)
[2018-10-31] MEDS: Famotidine/PF 20 mg/2ml Vial SLOW IVP SCH (08:43)
[2018-10-31] MEDS: Docusate 100 MG CAP PO SCH ×2 (08:44→21:39)
--- NOTE | 2018-10-31 08:53 | RAD ---
PORTABLE CHEST 1 VIEW: Date: 10/31/18 Time: 0634 hours HISTORY: Postop open heart surgery. FINDINGS/IMPRESSION: Comparison made with exam from previous day. Changes of median sternotomy again seen. Line and tube placements are unchanged in position. The hear t size is stable. Tiny left apical pneumothorax is again seen. There are mild atelectatic changes at the lung bases. POS: OFF
--- NOTE | 2018-10-31 11:21 | PDOC.PN ---
- Subjective Encounter Start Date: 10/31/18 Encounter Start Time: 08:45 Patient seen and examined. No new complaints. No overnight events - Objective Resuscitation Status - Order Detail: 10/22/18 22:26 Resuscitation Status Routine Resuscitation Status: FULL: Full Resuscitation MAR Reviewed: Yes Vital Signs & Weight: Vital Signs (12 hours) Temp Pulse Ox 10/31/18 07:00 98.6 F 10/31/18 06:55 98 10/31/18 04:00 98.7 F 10/31/18 00:00 98.9 F Weight Admit Weight 209 lb 11.2 oz Weight 214 lb 4.629 oz Most Recent Monitor Data Heart Rate from ECG 63 NIBP 105/66 NIBP BP-Mean 79 Respiration from ECG 21 SpO2 98 I&O: 10/30/18 10/31/18 11/01/18 06:59 06:59 06:59 Intake Total 1454 502 350 Output Total 3920 1960 1305 [facility] -[id number] -1458 -955 Result Diagrams: 10/31/18 04:05 10/31/18 04:05 Radiology Reviewed by me: Yes (chest xray reviewed) EKG Reviewed by me: Yes (nsr) Phys Exam - Physical Examination Constitutional: NAD HEENT: PERRLA, moist MMs, sclera anicteric Neck: no JVD, supple Respiratory: no wheezing, no rales, no rhonchi Cardiovascular: RRR, no significant murmur, no rub surgical site clean Gastrointestinal: soft, non-tender, no distention, positive bowel sounds Musculoskeletal: no edema, pulses present Neurological: non-focal, normal sensation Lymphatic: no nodes Psychiatric: normal affect, A&O x 3 Skin: no rash, normal turgor Dx/Plan (1) Acute systolic ACC/AHA stage C congestive heart failure Code(s): I50.21 - ACUTE SYSTOLIC (CONGESTIVE) HEART FAILURE Status: Acute (2) NSTEMI (non-ST elevated myocardial infarction) Code(s): I21.4 - NON-ST ELEVATION (NSTEMI) MYOCARDIAL INFARCTION Status: Acute (3) Severe mitral regurgitation Code(s): I34.0 - NONRHEUMATIC MITRAL (VALVE) INSUFFICIENCY Status: Acute (4) 3-vessel coronary artery disease Status: Acute Comment: s/p CABG (5) Hypokalemia Code(s): E87.6 - HYPOKALEMIA Status: Acute (6) Obesity (BMI 30.0-34.9) Code(s): E66.9 - OBESITY, UNSPECIFIED Status: Chronic - Plan cont current plan of care * medication reviewed as below * symptomatic treatment * transfer to tele will defer to surgeon * continue cardiac rehab * overall doing well Review of Systems - Review of Systems Eyes: negative: Pain, Vision Change, Conjunctivae Inflammation, Eyelid Inflammation, Redness, Other ENT: negative: Ear Pain, Ear Discharge, Nose Pain, Nose Discharge, Nose Congestion, Mouth Pain, Mouth Swelling, Throat Pain, Throat Swelling, Other Respiratory: negative: Cough, Dry, Shortness of Breath, Hemoptysis, SOB with Excertion, Pleuritic Pain, Sputum, Wheezing Cardiovascular: negative: chest pain, palpitations, orthopnea, paroxysmal nocturnal dyspnea, edema, light headedness, other Gastrointestinal: negative: Nausea, Vomiting, Abdominal Pain, Diarrhea, Constipation, Melena, Hematochezia, Other Genitourinary: negative: Dysuria, Frequency, Incontinence, Hematuria, Retention , Other Musculoskeletal: negative: Neck Pain, Shoulder Pain, Arm Pain, Back Pain, Hand Pain, Leg Pain, Foot Pain, Other Skin: negative: Rash, Lesions, Valerio, Bruising, Other - Medications/Allergies Allergies/Adverse Reactions: Allergies Allergy/AdvReac Type Severity Reaction Status Date / Time No Known Allergies Allergy Unverified 10/22/18 22:37 Medications: Current Medications Acetaminophen (Tylenol) 650 mg PO Q6H PRN PRN Reason: Headache/Fever Or Mild Pain Hydrocodone Bitart/Acetaminophen ([place] 5/325) 1 tab PO Q4H PRN PRN Reason: Moderate Pain (4-6) Last Admin: 10/30/18 05:05 Dose: 1 tab Hydrocodone Bitart/Acetaminophen ([place] 5/325) 2 tab PO Q4H PRN PRN Reason: Severe Pain (7-10) Last Admin: 10/28/18 15:18 Dose: 2 tab Al Hydroxide/Mg Hydroxide (Maalox) 30 ml PO Q4H PRN PRN Reason: Indigestion Albuterol/Ipratropium (Duoneb) 3 ml NEB [id number] PRN PRN Reason: SHORTNESS OF BREATH Aspirin (Aspirin Chewable) 81 mg PO DAILY [facility] Last Admin: 10/31/18 08:44 Dose: 81 mg Atorvastatin Calcium (Lipitor) 40 mg PO HS [facility] Last Admin: 10/30/18 20:47 Dose: 40 mg Bisacodyl (Dulcolax) 10 mg PO Q12H PRN PRN Reason: Constipation Bisacodyl (Dulcolax) 10 mg [place] Q12H PRN PRN Reason: Constipation Dextrose/Water (Dextrose 50%) 25 gm SLOW IVP PRN PRN PRN Reason: PER HYPOGLYCEMIC PROTOCOL Docusate Sodium (Colace) 100 mg PO BID [facility] Last Admin: 10/31/18 08:44 Dose: 100 mg Famotidine (Pepcid) 20 mg PO BID [facility] Furosemide (Lasix) 40 mg SLOW IVP 1400 [facility] Stop: 10/31/18 16:00 Glucagon (Glucagon) 1 mg SC PRN PRN PRN Reason: PER HYPOGLYCEMIC PROTOCOL Guaifenesin/Dextromethorphan (Robitussin Dm) 15 ml PO Q4H PRN PRN Reason: Cough Hydralazine HCl (Apresoline) 10 mg SLOW IVP Q6H PRN PRN Reason: To Maintain SBP< 140mmHG Dobutamine HCl/Dextrose (Dobutamine 500 Mg/250 Ml) 250 mls @ 13.751 mls/hr IVPB INF [facility]; Protocol Last Admin: 10/30/18 20:48 Dose: 250 mls Norepinephrine Bitartrate (Levophed) 250 mls @ 0 mls/hr IVPB PRN PRN; Protocol PRN Reason: To maintain SBP > 90 mmHG Last Admin: 10/30/18 05:16 Dose: 250 mls Nicardipine HCl 25 mg/ Sodium (Chloride) 250 mls @ 0 mls/hr IVPB INF PRN; Protocol PRN Reason: To Maintain SBP< 140mmHG Nitroglycerin/Dextrose (Nitroglycerin 50 Mg/250 Ml Bot) 250 mls @ 0 mls/hr IVPB PRN PRN; Protocol PRN Reason: To Maintain SBP< 140mmHG Sodium Chloride (Normal Saline 0.9%) 1,000 mls @ 75 mls/hr IV .[id number] [facility] Last Admin: 10/30/18 20:47 Dose: Not Given Insulin Human Regular 100 (units/ Sodium Chloride) 101 mls @ 0 mls/hr IVPB INF [facility]; Protocol Dextrose/Water (D5w) 1,000 mls @ 0 mls/hr IV INF PRN PRN Reason: PRN HYPOGLYCEMIC PROTOCOL Insulin Human Regular (Humulin R) 0 units SC Q4H PRN; Protocol PRN Reason: POST OP SLIDING SCALE Last Admin: 10/28/18 23:37 Dose: 2 unit Morphine Sulfate (Morphine) 2 mg SLOW IVP Q15MIN PRN PRN Reason: Severe Pain (7-10) Ondansetron HCl (Zofran) 4 mg IVP Q6H PRN PRN Reason: Nausea/Vomiting Last Admin: 10/30/18 02:00 Dose: 4 mg Potassium Chloride (Kcl) 20 meq IVPB PRN PRN PRN Reason: K level </= 4.0 Last Admin: 10/31/18 06:22 Dose: 20 meq Promethazine HCl (Phenergan) 6.25 mg IM Q4H PRN PRN Reason: Nausea/Vomiting Sodium Chloride (Flush - Normal Saline) 10 ml IVF Q12HR [facility] Last Admin: 10/31/18 08:45 Dose: 10 ml
[2018-10-31] MEDS: Sodium Chloride 0.9% 1,000 ML IV SCH (16:38)
[2018-10-31] MEDS ORDERED: Mineral Oil ENEMA PR PRN (17:35)
[2018-10-31] MEDS ORDERED: diphenhydrAMINE 25 MG CAP PO PRN (17:35)
[2018-10-31] MEDS ORDERED: Bisacodyl 10 MG SUPP PR PRN (17:35)
[2018-10-31] MEDS ORDERED: Guaifenesin DM 100-10/5 ML UDCUP PO PRN (17:35)
[2018-10-31] MEDS ORDERED: Nitroglycerin 0.4 MG TAB (25 Tab Bottle) SL PRN (17:35)
[2018-10-31] MEDS ORDERED: Bisacodyl 5 MG TAB PO PRN (17:35)
[2018-10-31] MEDS ORDERED: Artificial Tears 18 DROP/0.9 ML EA EYE PRN (17:35)
[2018-10-31] MEDS ORDERED: Zolpidem Tartrate 5 MG TAB PO PRN (17:35)
[2018-10-31] MEDS ORDERED: Mag-Al 1200 mg/1200 mg/30 ML UDCUP PO PRN (17:35)
[2018-10-31] MEDS: Famotidine 20 MG TAB PO SCH (21:39)
[2018-10-31] MEDS: Atorvastatin Calcium 40 MG TAB PO SCH (21:40)
[2018-11-01 05:33] LABS: #Basophils 0.1 thou/uL (0.0-0.2); #Eosinphils 0.5 thou/uL (0.0-0.7); #Lymphocytes 1.5 thou/uL (1.20-3.40); #Monocytes 1.2 thou/uL (0.11-0.59); #Neutrophils 6.8 thou/uL (1.40-6.50); %Basophils 0.6 % (0.0-1.0); %Eosinophils 5.1 % (0.0-10.0); %Lymphocytes 14.9 % (21.0-51.0); %Monocytes 11.9 % (0.0-10.0); %Neutrophils 67.5 % (42.0-75.0); Anion Gap 11 mmol/L (10-20); BUN (Urea Nitrogen) 19 mg/dL (8.4-25.7); Calc. Creatinine Clearance 94 mL/min (70-130); Calcium 8.6 mg/dL (7.8-10.44); Carbon Dioxide 33 mmol/L (23-31); Chloride 96 mmol/L (98-107); Estimated GFR-MDRD 77; Glucose 89 mg/dL (83-110); Hemoglobin 12.6 g/dL (14.0-18.0); Mean Corpuscular Hemoglobin 32.2 pg (27.0-31.0); Mean Corpuscular Volume 94.7 fL (78.0-98.0); Mean Platelet Volume 8.8 fL (7.4-10.4); Platelet Count 215 thou/uL (130-400); Potassium 3.3 mmol/L (3.5-5.1); Red Blood Cell (RBC) Count 3.91 mill/uL (4.70-6.10); Sodium 137 mmol/L (136-145); White Blood Cell (WBC) Count 10.1 thou/uL (4.8-10.8)
[2018-11-01] MEDS: Famotidine 20 MG TAB PO SCH ×2 (08:05→20:56)
[2018-11-01] MEDS: Docusate 100 MG CAP PO SCH ×2 (08:05→20:56)
--- NOTE | 2018-11-01 08:49 | PDOC.PN ---
- Subjective Encounter Start Date: 11/01/18 Encounter Start Time: 07:20 Patient seen and examined. No new complaints. No overnight events - Objective Resuscitation Status - Order Detail: 10/22/18 22:26 Resuscitation Status Routine Resuscitation Status: FULL: Full Resuscitation MAR Reviewed: Yes Vital Signs & Weight: Vital Signs (12 hours) Temp Pulse Resp BP Pulse Ox 11/01/18 08:00 97.5 F L 82 18 104/56 L 93 L 11/01/18 04:00 97.4 F L 63 20 112/64 93 L 11/01/18 00:00 71 102/60 Weight Admit Weight 209 lb 11.2 oz Weight 182 lb 11.2 oz Most Recent Monitor Data Heart Rate from ECG 62 NIBP 94/41 NIBP BP-Mean 58 Respiration from ECG 13 SpO2 92 I&O: 10/31/18 11/01/18 11/02/18 06:59 06:59 06:59 Intake Total 502 1550 Output Total 1960 5215 Balance -6704 -8024 Result Diagrams: 11/01/18 04:33 11/01/18 04:33 Radiology Reviewed by me: Yes (chest xray reviewed) EKG Reviewed by me: Yes (nsr) Phys Exam - Physical Examination Constitutional: NAD HEENT: PERRLA, moist MMs, sclera anicteric Neck: no JVD, supple Respiratory: no wheezing, no rales, no rhonchi Cardiovascular: RRR, no significant murmur, no rub surgical site clean chest tube in place Gastrointestinal: soft, non-tender, no distention, positive bowel sounds Musculoskeletal: no edema, pulses present Neurological: non-focal, normal sensation, moves all 4 limbs Lymphatic: no nodes Psychiatric: normal affect, A&O x 3 Skin: no rash, normal turgor Dx/Plan (1) Acute systolic ACC/AHA stage C congestive heart failure Code(s): I50.21 - ACUTE SYSTOLIC (CONGESTIVE) HEART FAILURE Status: Acute (2) NSTEMI (non-ST elevated myocardial infarction) Code(s): I21.4 - NON-ST ELEVATION (NSTEMI) MYOCARDIAL INFARCTION Status: Acute (3) Severe mitral regurgitation Code(s): I34.0 - NONRHEUMATIC MITRAL (VALVE) INSUFFICIENCY Status: Acute (4) 3-vessel coronary artery disease Status: Acute Comment: s/p CABG (5) Hypokalemia Code(s): E87.6 - HYPOKALEMIA Status: Acute (6) Obesity (BMI 30.0-34.9) Code(s): E66.9 - OBESITY, UNSPECIFIED Status: Chronic (7) Pneumothorax on left Code(s): J93.9 - PNEUMOTHORAX, UNSPECIFIED Status: Acute Comment: left apical, improving - Plan cont current plan of care * medication reviewed as below * symptomatic treatment. * CT as per cardiovascular surgeon * continue cardiac rehab * will need PT once chest tube out * overall stable Review of Systems - Review of Systems ENT: negative: Ear Pain, Ear Discharge, Nose Pain, Nose Discharge, Nose Congestion, Mouth Pain, Mouth Swelling, Throat Pain, Throat Swelling, Other Respiratory: negative: Cough, Dry, Shortness of Breath, Hemoptysis, SOB with Excertion, Pleuritic Pain, Sputum, Wheezing Cardiovascular: negative: chest pain, palpitations, orthopnea, paroxysmal nocturnal dyspnea, edema, light headedness, other Gastrointestinal: negative: Nausea, Vomiting, Abdominal Pain, Diarrhea, Constipation, Melena, Hematochezia, Other Genitourinary: negative: Dysuria, Frequency, Incontinence, Hematuria, Retention , Other Musculoskeletal: negative: Neck Pain, Shoulder Pain, Arm Pain, Back Pain, Hand Pain, Leg Pain, Foot Pain, Other Skin: negative: Rash, Lesions, Valerio, Bruising, Other - Medications/Allergies Allergies/Adverse Reactions: Allergies Allergy/AdvReac Type Severity Reaction Status Date / Time No Known Allergies Allergy Unverified 10/22/18 22:37 Medications: Current Medications Hydrocodone Bitart/Acetaminophen ([place] 5/325) 1 tab PO Q4H PRN PRN Reason: Moderate Pain (4-6) Last Admin: 10/30/18 05:05 Dose: 1 tab Hydrocodone Bitart/Acetaminophen ([place] 5/325) 2 tab PO Q4H PRN PRN Reason: Severe Pain (7-10) Last Admin: 10/28/18 15:18 Dose: 2 tab Al Hydroxide/Mg Hydroxide (Maalox) 30 ml PO Q4H PRN PRN Reason: Indigestion Albuterol/Ipratropium (Duoneb) 3 ml NEB [id number] PRN PRN Reason: SHORTNESS OF BREATH Artificial Tears (Tears Naturale) 0 drop EA EYE PRN PRN PRN Reason: Dry Eyes Aspirin (Aspirin Chewable) 81 mg PO DAILY [facility] Last Admin: 11/01/18 08:05 Dose: 81 mg Atorvastatin Calcium (Lipitor) 40 mg PO HS [facility] Last Admin: 10/31/18 21:40 Dose: 40 mg Bisacodyl (Dulcolax) 10 mg PO Q12H PRN PRN Reason: Constipation Bisacodyl (Dulcolax) 10 mg [place] Q12H PRN PRN Reason: Constipation Diphenhydramine HCl (Benadryl) 25 mg PO Q6H PRN PRN Reason: Itching & Insomnia or Tong [place] J Last Admin: 10/31/18 21:40 Dose: 25 mg Docusate Sodium (Colace) 100 mg PO BID [facility] Last Admin: 11/01/18 08:05 Dose: 100 mg Famotidine (Pepcid) 20 mg PO BID [facility] Last Admin: 11/01/18 08:05 Dose: 20 mg Guaifenesin/Dextromethorphan (Robitussin Dm) 15 ml PO Q4H PRN PRN Reason: Cough Mineral Oil (Fleet Mineral Oil) 133 ml [place] DAILYPRN PRN PRN Reason: Constipation Nitroglycerin (Nitrostat) 0.4 mg SL Q5MIN PRN PRN Reason: Chest Pain Ondansetron HCl (Zofran) 4 mg IVP Q6H PRN PRN Reason: Nausea/Vomiting Last Admin: 10/30/18 02:00 Dose: 4 mg Sodium Chloride (Flush - Normal Saline) 10 ml IVF Q12HR [facility] Last Admin: 11/01/18 08:05 Dose: 10 ml Zolpidem Tartrate (Ambien) 5 mg PO HSPRN PRN PRN Reason: Insomnia
--- NOTE | 2018-11-01 10:23 | RAD ---
PORTABLE CHEST 1 VIEW: Date: 11/01/18 Time: 0604 hours HISTORY: CABG. FINDINGS/IMPRESSION: Comparison made with exam from previous day. Line and tube placements are unchanged in position. Tiny left apical pneumothorax is stable. Atelecta tic changes of the lung bases are redemonstrated. POS: [facility]
[2018-11-01] MEDS: Atorvastatin Calcium 40 MG TAB PO SCH (20:56)
[2018-11-02 05:54] LABS: #Basophils 0.1 thou/uL (0.0-0.2); #Eosinphils 0.5 thou/uL (0.0-0.7); #Lymphocytes 1.6 thou/uL (1.20-3.40); #Monocytes 1.1 thou/uL (0.11-0.59); #Neutrophils 5.2 thou/uL (1.40-6.50); %Basophils 0.7 % (0.0-1.0); %Eosinophils 5.7 % (0.0-10.0); %Lymphocytes 19.1 % (21.0-51.0); %Monocytes 13.3 % (0.0-10.0); %Neutrophils 61.1 % (42.0-75.0); Hemoglobin 12.4 g/dL (14.0-18.0); Mean Corpuscular HGB CONC 33.2 g/dL (32.0-36.0); Mean Corpuscular Hemoglobin 31.3 pg (27.0-31.0); Mean Corpuscular Volume 94.4 fL (78.0-98.0); Mean Platelet Volume 8.6 fL (7.4-10.4); Platelet Count 243 thou/uL (130-400); Red Blood Cell (RBC) Count 3.94 mill/uL (4.70-6.10); White Blood Cell (WBC) Count 8.5 thou/uL (4.8-10.8)
[2018-11-02 06:08] LABS: Anion Gap 9 mmol/L (10-20); BUN (Urea Nitrogen) 15 mg/dL (8.4-25.7); Calc. Creatinine Clearance 84 mL/min (70-130); Calcium 8.6 mg/dL (7.8-10.44); Carbon Dioxide 34 mmol/L (23-31); Chloride 97 mmol/L (98-107); Estimated GFR-MDRD 83; Glucose 91 mg/dL (83-110); Potassium 3.1 mmol/L (3.5-5.1); Sodium 137 mmol/L (136-145)
--- NOTE | 2018-11-02 06:30 | EKG ---
Test Reason : Blood Pressure : / mmHG Vent. Rate : 073 BPM Atrial Rate : 073 BPM P-R Int : 172 ms QRS Dur : 118 ms QT Int : 404 ms P-R-T Axes : 041 -21 -31 degrees QTc Int : 445 ms Sinus rhythm with marked sinus arrhythmia with occasional Premature ventricular complexes Low voltage QRS Non-specific intra-ventricular conduction delay Low voltage Limb leads. T wave abnormality, consider lateral ischemia Abnormal ECG When compared with ECG of 27-OCT-2018 14:05, Significant changes have occurred Confirmed by MELBA DOTY ([id number]) on 11/02/2018 6:30:28 AM Referred By: GUERRERO Confirmed By:MELBA DOTY
--- NOTE | 2018-11-02 08:55 | RAD ---
PORTABLE CHEST 1 VIEW: Date: 11/02/18 Time: 0541 hours HISTORY: Status post CABG. FINDINGS/IMPRESSION: There has been interval removal of the left-sided chest tube since the previous day's exam. The previ ously noted small left apical pneumothorax is no longer seen. Remainder of exam is otherwise stable. POS: [facility]
--- NOTE | 2018-11-02 09:00 | PDOC.PN ---
- Subjective Encounter Start Date: 11/02/18 Encounter Start Time: 07:40 Patient seen and examined. No new complaints. No overnight events pt prefers to go to rehab on discharge today chest tube removed - Objective Resuscitation Status - Order Detail: 10/22/18 22:26 Resuscitation Status Routine Resuscitation Status: FULL: Full Resuscitation MAR Reviewed: Yes Vital Signs & Weight: Vital Signs (12 hours) Temp Pulse Resp BP Pulse Ox 11/02/18 04:00 98 F 78 18 107/88 94 L Weight Admit Weight 209 lb 11.2 oz Weight 179 lb Most Recent Monitor Data Heart Rate from ECG 62 NIBP 94/41 NIBP BP-Mean 58 Respiration from ECG 13 SpO2 92 I&O: 11/01/18 11/02/18 11/03/18 06:59 06:59 06:59 Intake Total 1550 1080 Output Total 5215 1725 Balance -3665 -645 Result Diagrams: 11/02/18 04:55 11/02/18 04:55 Radiology Reviewed by me: Yes (chest xray reviewed) EKG Reviewed by me: Yes (nsr) Phys Exam - Physical Examination Constitutional: NAD HEENT: PERRLA, moist MMs, sclera anicteric Neck: no JVD, supple Respiratory: no wheezing, no rales, no rhonchi Cardiovascular: RRR, no significant murmur, no rub Gastrointestinal: soft, non-tender, no distention, positive bowel sounds Musculoskeletal: no edema, pulses present Neurological: non-focal, normal sensation, moves all 4 limbs Psychiatric: normal affect, A&O x 3 Skin: no rash, normal turgor Dx/Plan (1) Acute systolic ACC/AHA stage C congestive heart failure Code(s): I50.21 - ACUTE SYSTOLIC (CONGESTIVE) HEART FAILURE Status: Acute (2) NSTEMI (non-ST elevated myocardial infarction) Code(s): I21.4 - NON-ST ELEVATION (NSTEMI) MYOCARDIAL INFARCTION Status: Acute (3) Severe mitral regurgitation Code(s): I34.0 - NONRHEUMATIC MITRAL (VALVE) INSUFFICIENCY Status: Acute (4) 3-vessel coronary artery disease Status: Acute Comment: s/p CABG (5) Hypokalemia Code(s): E87.6 - HYPOKALEMIA Status: Acute (6) Obesity (BMI 30.0-34.9) Code(s): E66.9 - OBESITY, UNSPECIFIED Status: Chronic - Plan cont current plan of care, PT/OT, social economist * medication reviewed as below * symptomatic treatment * start PT/OT * discharge planning to rehab/swing bed * overall stable with current treatment. Review of Systems - Review of Systems ENT: negative: Ear Pain, Ear Discharge, Nose Pain, Nose Discharge, Nose Congestion, Mouth Pain, Mouth Swelling, Throat Pain, Throat Swelling, Other Respiratory: negative: Cough, Dry, Shortness of Breath, Hemoptysis, SOB with Excertion, Pleuritic Pain, Sputum, Wheezing Cardiovascular: negative: chest pain, palpitations, orthopnea, paroxysmal nocturnal dyspnea, edema, light headedness, other Gastrointestinal: negative: Nausea, Vomiting, Abdominal Pain, Diarrhea, Constipation, Melena, Hematochezia, Other Genitourinary: negative: Dysuria, Frequency, Incontinence, Hematuria, Retention , Other Musculoskeletal: negative: Neck Pain, Shoulder Pain, Arm Pain, Back Pain, Hand Pain, Leg Pain, Foot Pain, Other Skin: negative: Rash, Lesions, Valerio, Bruising, Other - Medications/Allergies Allergies/Adverse Reactions: Allergies Allergy/AdvReac Type Severity Reaction Status Date / Time No Known Allergies Allergy Unverified 10/22/18 22:37 Medications: Current Medications Hydrocodone Bitart/Acetaminophen ([place] 5/325) 1 tab PO Q4H PRN PRN Reason: Moderate Pain (4-6) Last Admin: 10/30/18 05:05 Dose: 1 tab Hydrocodone Bitart/Acetaminophen ([place] 5/325) 2 tab PO Q4H PRN PRN Reason: Severe Pain (7-10) Last Admin: 10/28/18 15:18 Dose: 2 tab Al Hydroxide/Mg Hydroxide (Maalox) 30 ml PO Q4H PRN PRN Reason: Indigestion Albuterol/Ipratropium (Duoneb) 3 ml NEB [id number] PRN PRN Reason: SHORTNESS OF BREATH Aspirin (Aspirin Chewable) 81 mg PO DAILY [facility] Last Admin: 11/01/18 08:05 Dose: 81 mg Atorvastatin Calcium (Lipitor) 40 mg PO HS [facility] Last Admin: 11/01/18 20:56 Dose: 40 mg Bisacodyl (Dulcolax) 10 mg PO Q12H PRN PRN Reason: Constipation Bisacodyl (Dulcolax) 10 mg [place] Q12H PRN PRN Reason: Constipation Diphenhydramine HCl (Benadryl) 25 mg PO Q6H PRN PRN Reason: Itching & Insomnia or [place] J Last Admin: 10/31/18 21:40 Dose: 25 mg Docusate Sodium (Colace) 100 mg PO BID [facility] Last Admin: 11/01/18 20:56 Dose: 100 mg Famotidine (Pepcid) 20 mg PO BID [facility] Last Admin: 11/01/18 20:56 Dose: 20 mg Furosemide (Lasix) 40 mg PO DAILY-[facility] Guaifenesin/Dextromethorphan (Robitussin Dm) 15 ml PO Q4H PRN PRN Reason: Cough Mineral Oil (Fleet Mineral Oil) 133 ml [place] DAILYPRN PRN PRN Reason: Constipation Nitroglycerin (Nitrostat) 0.4 mg SL Q5MIN PRN PRN Reason: Chest Pain Ondansetron HCl (Zofran) 4 mg IVP Q6H PRN PRN Reason: Nausea/Vomiting Last Admin: 10/30/18 02:00 Dose: 4 mg Potassium Chloride (K-Dur) 20 meq PO BID-[facility] Sodium Chloride (Flush - Normal Saline) 10 ml IVF Q12HR [facility] Last Admin: 11/01/18 20:56 Dose: 10 ml Zolpidem Tartrate (Ambien) 5 mg PO HSPRN PRN PRN Reason: Insomnia
[2018-11-02] MEDS: Famotidine 20 MG TAB PO SCH ×2 (09:40→20:42)
[2018-11-02] MEDS: Potassium Chloride 20 MEQ TAB PO SCH ×2 (09:40→17:02)
[2018-11-02] MEDS: Docusate 100 MG CAP PO SCH ×2 (09:40→20:42)
[2018-11-02] MEDS: Carvedilol 3.125 MG TAB PO SCH (17:02)
[2018-11-02] MEDS: Atorvastatin Calcium 40 MG TAB PO SCH (20:42)
[2018-11-03 05:38] LABS: #Basophils 0.1 thou/uL (0.0-0.2); #Eosinphils 0.6 thou/uL (0.0-0.7); #Lymphocytes 1.6 thou/uL (1.20-3.40); #Neutrophils 4.2 thou/uL (1.40-6.50); %Eosinophils 7.7 % (0.0-10.0); %Lymphocytes 21.5 % (21.0-51.0); %Monocytes 13.8 % (0.0-10.0); %Neutrophils 55.9 % (42.0-75.0); Hemoglobin 12.8 g/dL (14.0-18.0); Mean Corpuscular HGB CONC 33.7 g/dL (32.0-36.0); Mean Corpuscular Hemoglobin 31.8 pg (27.0-31.0); Mean Corpuscular Volume 94.5 fL (78.0-98.0); Mean Platelet Volume 8.1 fL (7.4-10.4); Platelet Count 265 thou/uL (130-400); Red Blood Cell (RBC) Count 4.01 mill/uL (4.70-6.10); White Blood Cell (WBC) Count 7.5 thou/uL (4.8-10.8)
[2018-11-03 05:47] LABS: Anion Gap 13 mmol/L (10-20); BUN (Urea Nitrogen) 13 mg/dL (8.4-25.7); Calc. Creatinine Clearance 81 mL/min (70-130); Calcium 8.9 mg/dL (7.8-10.44); Carbon Dioxide 30 mmol/L (23-31); Chloride 99 mmol/L (98-107); Estimated GFR-MDRD 80; Glucose 96 mg/dL (83-110); Potassium 3.4 mmol/L (3.5-5.1); Sodium 139 mmol/L (136-145)
--- NOTE | 2018-11-03 08:45 | RAD ---
PORTABLE CHEST 1 VIEW: Date: 11/03/18 Time: 0614 hours HISTORY: Post CABG. FINDINGS/IMPRESSION: Changes of median sternotomy are again seen. Right-sided central venous catheter remains in place. Th ere are bilateral small pleural effusions with adjacent atelectatic changes. No pneumothoraces seen. POS: [facility]
[2018-11-03] MEDS: Carvedilol 3.125 MG TAB PO SCH ×2 (09:48→16:32)
[2018-11-03] MEDS: Furosemide 40 MG TAB PO SCH (09:48)
[2018-11-03] MEDS: Potassium Chloride 20 MEQ TAB PO SCH ×3 (09:49→16:32)
[2018-11-03] MEDS: Docusate 100 MG CAP PO SCH ×2 (09:49→19:50)
[2018-11-03] MEDS: Famotidine 20 MG TAB PO SCH ×2 (09:49→19:50)
--- NOTE | 2018-11-03 09:50 | PDOC.PN ---
- Subjective Encounter Start Date: 11/03/18 Encounter Start Time: 07:40 Patient seen and examined. No new complaints. No overnight events - Objective Resuscitation Status - Order Detail: 10/22/18 22:26 Resuscitation Status Routine Resuscitation Status: FULL: Full Resuscitation MAR Reviewed: Yes Vital Signs & Weight: Vital Signs (12 hours) Temp Pulse Pulse Pulse Resp BP BP 11/03/18 09:04 75 77 137/64 114/82 11/03/18 07:40 97.6 F 68 20 11/03/18 04:00 97.4 F L 68 12 BP Pulse Ox Pulse Ox Pulse Ox 11/03/18 09:04 98 96 11/03/18 07:40 109/58 L 94 L 11/03/18 04:00 105/58 L 94 L Weight Admit Weight 209 lb 11.2 oz Weight 185 lb Most Recent Monitor Data Heart Rate from ECG 62 NIBP 94/41 NIBP BP-Mean 58 Respiration from ECG 13 SpO2 92 I&O: 11/02/18 11/03/18 11/04/18 06:59 06:59 06:59 Intake Total 1080 1920 Output Total 1725 1600 Balance -645 320 Result Diagrams: 11/03/18 05:11 11/03/18 05:11 Radiology Reviewed by me: Yes (chest xray reviewed) EKG Reviewed by me: Yes (nsr) Phys Exam - Physical Examination Constitutional: NAD HEENT: PERRLA, moist MMs, sclera anicteric Neck: no JVD, supple Respiratory: no wheezing, no rales, no rhonchi reduced air entry at base Cardiovascular: RRR, no significant murmur, no rub Gastrointestinal: soft, non-tender, no distention, positive bowel sounds Musculoskeletal: no edema, pulses present Neurological: non-focal, normal sensation, moves all 4 limbs Psychiatric: normal affect, A&O x 3 Skin: no rash, normal turgor Dx/Plan (1) Acute systolic ACC/AHA stage C congestive heart failure Code(s): I50.21 - ACUTE SYSTOLIC (CONGESTIVE) HEART FAILURE Status: Acute (2) NSTEMI (non-ST elevated myocardial infarction) Code(s): I21.4 - NON-ST ELEVATION (NSTEMI) MYOCARDIAL INFARCTION Status: Acute (3) Severe mitral regurgitation Code(s): I34.0 - NONRHEUMATIC MITRAL (VALVE) INSUFFICIENCY Status: Acute (4) 3-vessel coronary artery disease Status: Acute Comment: s/p CABG (5) Hypokalemia Code(s): E87.6 - HYPOKALEMIA Status: Acute (6) Obesity (BMI 30.0-34.9) Code(s): E66.9 - OBESITY, UNSPECIFIED Status: Chronic - Plan cont current plan of care, PT/OT, social service manager * continue PT/OT * manager rn case to arrange rehab vs swing bed * medication reviewed as below * symptomatic treatment * currently stable * ? life vest on discharge. Review of Systems - Review of Systems Constitutional: weakness. negative: fever, chills, sweats, malaise, other ENT: negative: Ear Pain, Ear Discharge, Nose Pain, Nose Discharge, Nose Congestion, Mouth Pain, Mouth Swelling, Throat Pain, Throat Swelling, Other Respiratory: SOB with Excertion. negative: Cough, Dry, Shortness of Breath, Hemoptysis, Pleuritic Pain, Sputum, Wheezing Cardiovascular: negative: chest pain, palpitations, orthopnea, paroxysmal nocturnal dyspnea, edema, light headedness, other Gastrointestinal: negative: Nausea, Vomiting, Abdominal Pain, Diarrhea, Constipation, Melena, Hematochezia, Other Genitourinary: negative: Dysuria, Frequency, Incontinence, Hematuria, Retention , Other Musculoskeletal: negative: Neck Pain, Shoulder Pain, Arm Pain, Back Pain, Hand Pain, Leg Pain, Foot Pain, Other Skin: negative: Rash, Lesions, Valerio, Bruising, Other - Medications/Allergies Allergies/Adverse Reactions: Allergies Allergy/AdvReac Type Severity Reaction Status Date / Time No Known Allergies Allergy Unverified 10/22/18 22:37 Medications: Current Medications Hydrocodone Bitart/Acetaminophen ([place] 5/325) 1 tab PO Q4H PRN PRN Reason: Moderate Pain (4-6) Last Admin: 10/30/18 05:05 Dose: 1 tab Hydrocodone Bitart/Acetaminophen ([place] 5/325) 2 tab PO Q4H PRN PRN Reason: Severe Pain (7-10) Last Admin: 10/28/18 15:18 Dose: 2 tab Al Hydroxide/Mg Hydroxide (Maalox) 30 ml PO Q4H PRN PRN Reason: Indigestion Albuterol/Ipratropium (Duoneb) 3 ml NEB Q2OM-GE PRN PRN Reason: SHORTNESS OF BREATH Aspirin (Aspirin Chewable) 81 mg PO DAILY [facility] Last Admin: 11/03/18 09:48 Dose: 81 mg Atorvastatin Calcium (Lipitor) 40 mg PO HS [facility] Last Admin: 11/02/18 20:42 Dose: 40 mg Bisacodyl (Dulcolax) 10 mg PO Q12H PRN PRN Reason: Constipation Bisacodyl (Dulcolax) 10 mg [place] Q12H PRN PRN Reason: Constipation Carvedilol (Coreg) 3.125 mg PO BID-[facility] Last Admin: 11/03/18 09:48 Dose: 3.125 mg Diphenhydramine HCl (Benadryl) 25 mg PO Q6H PRN PRN Reason: Itching & Insomnia or [place] J Last Admin: 10/31/18 21:40 Dose: 25 mg Docusate Sodium (Colace) 100 mg PO BID [facility] Last Admin: 11/03/18 09:49 Dose: 100 mg Famotidine (Pepcid) 20 mg PO BID [facility] Last Admin: 11/03/18 09:49 Dose: 20 mg Furosemide (Lasix) 40 mg PO DAILY-[facility] Last Admin: 11/03/18 09:48 Dose: 40 mg Guaifenesin/Dextromethorphan (Robitussin Dm) 15 ml PO Q4H PRN PRN Reason: Cough Mineral Oil (Fleet Mineral Oil) 133 ml [place] DAILYPRN PRN PRN Reason: Constipation Nitroglycerin (Nitrostat) 0.4 mg SL Q5MIN PRN PRN Reason: Chest Pain Ondansetron HCl (Zofran) 4 mg IVP Q6H PRN PRN Reason: Nausea/Vomiting Last Admin: 10/30/18 02:00 Dose: 4 mg Potassium Chloride (K-Dur) 20 meq PO TID-[facility] Last Admin: 11/03/18 09:49 Dose: 20 meq Sodium Chloride (Flush - Normal Saline) 10 ml IVF Q12HR [facility] Last Admin: 11/03/18 09:49 Dose: 10 ml Zolpidem Tartrate (Ambien) 5 mg PO HSPRN PRN PRN Reason: Insomnia
[2018-11-03 16:27] VITALS: BMI 26.5
[2018-11-03] MEDS: Atorvastatin Calcium 40 MG TAB PO SCH (19:50)
[2018-11-04 06:04] LABS: #Basophils 0.1 thou/uL (0.0-0.2); #Eosinphils 0.5 thou/uL (0.0-0.7); #Lymphocytes 1.8 thou/uL (1.20-3.40); #Monocytes 1.1 thou/uL (0.11-0.59); #Neutrophils 4.5 thou/uL (1.40-6.50); %Basophils 1.1 % (0.0-1.0); %Eosinophils 6.2 % (0.0-10.0); %Lymphocytes 22.1 % (21.0-51.0); %Neutrophils 56.6 % (42.0-75.0); Hemoglobin 12.9 g/dL (14.0-18.0); Mean Platelet Volume 8.7 fL (7.4-10.4); Platelet Count 323 thou/uL (130-400); RBC Distribution Width 13.1 % (11.5-14.5); Red Blood Cell (RBC) Count 4.05 mill/uL (4.70-6.10)
[2018-11-04 06:29] LABS: Anion Gap 12 mmol/L (10-20); BUN (Urea Nitrogen) 17 mg/dL (8.4-25.7); Calc. Creatinine Clearance 88 mL/min (70-130); Calcium 8.9 mg/dL (7.8-10.44); Carbon Dioxide 29 mmol/L (23-31); Chloride 99 mmol/L (98-107); Estimated GFR-MDRD 84; Glucose 89 mg/dL (83-110); Potassium 3.4 mmol/L (3.5-5.1); Sodium 137 mmol/L (136-145)
[2018-11-04] MEDS: Famotidine 20 MG TAB PO SCH ×2 (07:46→20:31)
[2018-11-04] MEDS: Potassium Chloride 20 MEQ TAB PO SCH ×3 (07:46→16:15)
[2018-11-04] MEDS: Furosemide 40 MG TAB PO SCH (07:47)
[2018-11-04] MEDS: Carvedilol 3.125 MG TAB PO SCH ×2 (07:47→16:15)
[2018-11-04] MEDS: Docusate 100 MG CAP PO SCH ×2 (07:47→20:31)
--- NOTE | 2018-11-04 09:43 | PDOC.PN ---
- Subjective Encounter Start Date: 11/04/18 Encounter Start Time: 07:00 Patient seen and examined. No new complaints. No overnight events - Objective Resuscitation Status - Order Detail: 10/22/18 22:26 Resuscitation Status Routine Resuscitation Status: FULL: Full Resuscitation MAR Reviewed: Yes Vital Signs & Weight: Vital Signs (12 hours) Temp Pulse Resp BP Pulse Ox 11/04/18 07:45 95 11/04/18 07:42 97.6 F 67 16 98/53 L 95 11/04/18 04:00 97.7 F 78 18 100/69 93 L Weight Admit Weight 209 lb 11.2 oz Weight 185 lb 8 oz Most Recent Monitor Data Heart Rate from ECG 62 NIBP 94/41 NIBP BP-Mean 58 Respiration from ECG 13 SpO2 92 I&O: 11/03/18 11/04/18 11/05/18 06:59 06:59 06:59 Intake Total 1920 1380 Output Total 1600 1375 Balance 320 5 Result Diagrams: 11/04/18 05:19 11/04/18 05:19 EKG Reviewed by me: Yes (nsr) Phys Exam - Physical Examination Constitutional: NAD HEENT: PERRLA, moist MMs, sclera anicteric Neck: no JVD, supple Respiratory: no wheezing, no rales, no rhonchi Cardiovascular: RRR, no significant murmur, no rub Gastrointestinal: soft, non-tender, no distention, positive bowel sounds Musculoskeletal: no edema, pulses present Neurological: non-focal, normal sensation Lymphatic: no nodes Psychiatric: normal affect, A&O x 3 Skin: no rash, normal turgor Dx/Plan (1) Acute systolic ACC/AHA stage C congestive heart failure Code(s): I50.21 - ACUTE SYSTOLIC (CONGESTIVE) HEART FAILURE Status: Acute (2) NSTEMI (non-ST elevated myocardial infarction) Code(s): I21.4 - NON-ST ELEVATION (NSTEMI) MYOCARDIAL INFARCTION Status: Acute (3) Severe mitral regurgitation Code(s): I34.0 - NONRHEUMATIC MITRAL (VALVE) INSUFFICIENCY Status: Acute (4) 3-vessel coronary artery disease Status: Acute Comment: s/p CABG (5) Hypokalemia Code(s): E87.6 - HYPOKALEMIA Status: Acute (6) Obesity (BMI 30.0-34.9) Code(s): E66.9 - OBESITY, UNSPECIFIED Status: Chronic - Plan cont current plan of care * medication reviewed as below * symptomatic treatment. * await placement * continue cardiac rehab Review of Systems - Review of Systems Eyes: negative: Pain, Vision Change, Conjunctivae Inflammation, Eyelid Inflammation, Redness, Other ENT: negative: Ear Pain, Ear Discharge, Nose Pain, Nose Discharge, Nose Congestion, Mouth Pain, Mouth Swelling, Throat Pain, Throat Swelling, Other Respiratory: negative: Cough, Dry, Shortness of Breath, Hemoptysis, SOB with Excertion, Pleuritic Pain, Sputum, Wheezing Cardiovascular: negative: chest pain, palpitations, orthopnea, paroxysmal nocturnal dyspnea, edema, light headedness, other Gastrointestinal: negative: Nausea, Vomiting, Abdominal Pain, Diarrhea, Constipation, Melena, Hematochezia, Other Genitourinary: negative: Dysuria, Frequency, Incontinence, Hematuria, Retention , Other Musculoskeletal: negative: Neck Pain, Shoulder Pain, Arm Pain, Back Pain, Hand Pain, Leg Pain, Foot Pain, Other Skin: negative: Rash, Lesions, Valerio, Bruising, Other - Medications/Allergies Allergies/Adverse Reactions: Allergies Allergy/AdvReac Type Severity Reaction Status Date / Time No Known Allergies Allergy Unverified 10/22/18 22:37 Medications: Current Medications Hydrocodone Bitart/Acetaminophen ([place] 5/325) 1 tab PO Q4H PRN PRN Reason: Moderate Pain (4-6) Last Admin: 10/30/18 05:05 Dose: 1 tab Hydrocodone Bitart/Acetaminophen ([place] 5/325) 2 tab PO Q4H PRN PRN Reason: Severe Pain (7-10) Last Admin: 10/28/18 15:18 Dose: 2 tab Al Hydroxide/Mg Hydroxide (Maalox) 30 ml PO Q4H PRN PRN Reason: Indigestion Albuterol/Ipratropium (Duoneb) 3 ml NEB [id number] PRN PRN Reason: SHORTNESS OF BREATH Aspirin (Aspirin Chewable) 81 mg PO DAILY [facility] Last Admin: 11/04/18 07:46 Dose: 81 mg Atorvastatin Calcium (Lipitor) 40 mg PO HS [facility] Last Admin: 11/03/18 19:50 Dose: 40 mg Bisacodyl (Dulcolax) 10 mg PO Q12H PRN PRN Reason: Constipation Last Admin: 11/03/18 17:28 Dose: 10 mg Bisacodyl (Dulcolax) 10 mg [place] Q12H PRN PRN Reason: Constipation Carvedilol (Coreg) 3.125 mg PO BID-[facility] Last Admin: 11/04/18 07:47 Dose: 3.125 mg Diphenhydramine HCl (Benadryl) 25 mg PO Q6H PRN PRN Reason: Itching & Insomnia or [place] J Last Admin: 10/31/18 21:40 Dose: 25 mg Docusate Sodium (Colace) 100 mg PO BID [facility] Last Admin: 11/04/18 07:47 Dose: 100 mg Famotidine (Pepcid) 20 mg PO BID [facility] Last Admin: 11/04/18 07:46 Dose: 20 mg Furosemide (Lasix) 40 mg PO DAILY-[facility] Last Admin: 11/04/18 07:47 Dose: 40 mg Guaifenesin/Dextromethorphan (Robitussin Dm) 15 ml PO Q4H PRN PRN Reason: Cough Mineral Oil (Fleet Mineral Oil) 133 ml [place] DAILYPRN PRN PRN Reason: Constipation Nitroglycerin (Nitrostat) 0.4 mg SL Q5MIN PRN PRN Reason: Chest Pain Ondansetron HCl (Zofran) 4 mg IVP Q6H PRN PRN Reason: Nausea/Vomiting Last Admin: 10/30/18 02:00 Dose: 4 mg Potassium Chloride (K-Dur) 20 meq PO TID-[facility] Last Admin: 11/04/18 07:46 Dose: 20 meq Sodium Chloride (Flush - Normal Saline) 10 ml IVF Q12HR [facility] Last Admin: 11/04/18 07:46 Dose: 10 ml Zolpidem Tartrate (Ambien) 5 mg PO HSPRN PRN PRN Reason: Insomnia
[2018-11-04] MEDS ORDERED: Lisinopril 2.5 MG TAB PO SCH ×2 (12:00→17:00)
[2018-11-04] MEDS ORDERED: Bisacodyl 10 MG SUPP PR SCH (16:45)
[2018-11-04] MEDS: Atorvastatin Calcium 40 MG TAB PO SCH (20:31)
[2018-11-05] MEDS ORDERED: Lidocaine 2% Jelly 5 ML TUBE TOP SCH (00:30)
[2018-11-05 05:53] LABS: Anion Gap 11 mmol/L (10-20); BUN (Urea Nitrogen) 18 mg/dL (8.4-25.7); Calc. Creatinine Clearance 72 mL/min (70-130); Calcium 8.6 mg/dL (7.8-10.44); Carbon Dioxide 26 mmol/L (23-31); Chloride 99 mmol/L (98-107); Estimated GFR-MDRD 66; Glucose 108 mg/dL (83-110); Potassium 3.9 mmol/L (3.5-5.1); Sodium 132 mmol/L (136-145)
[2018-11-05 06:11] LABS: Band 8 % (5-11); Eosinophils 2 % (0-10); Hemoglobin 12.9 g/dL (14.0-18.0); Lymphocytes 6 % (21-51); MDiff Complete? YES; Mean Corpuscular Hemoglobin 31.6 pg (27.0-31.0); Mean Corpuscular Volume 93.1 fL (78.0-98.0); Mean Platelet Volume 7.6 fL (7.4-10.4); Monocytes 12 % (0-10); Neutrophil 72 % (42-75); Platelet Count 327 thou/uL (130-400); RBC Distribution Width 12.9 % (11.5-14.5); Red Blood Cell (RBC) Count 4.09 mill/uL (4.70-6.10); White Blood Cell (WBC) Count 15.8 thou/uL (4.8-10.8)
[2018-11-05] MEDS ORDERED: Polyethylene Glycol 3350 17 GM Packet PO SCH (06:59)
[2018-11-05] MEDS ORDERED: Mineral Oil PER 1 ML PO SCH (07:00)
[2018-11-05] MEDS: Carvedilol 3.125 MG TAB PO SCH (08:53)
[2018-11-05] MEDS ORDERED: Lisinopril 2.5 MG TAB PO SCH ×2 (09:00→12:00)
[2018-11-05] MEDS: Famotidine 20 MG TAB PO SCH (09:07)
[2018-11-05] MEDS: Furosemide 40 MG TAB PO SCH (09:07)
[2018-11-05] MEDS: Potassium Chloride 20 MEQ TAB PO SCH ×2 (09:07→11:41)
[2018-11-05] MEDS: Docusate 100 MG CAP PO SCH (09:07)
[2018-11-05] MEDS ORDERED: Bisacodyl 10 MG SUPP PR SCH (09:30)
--- NOTE | 2018-11-05 10:20 | PDOC.PN ---
- Subjective Encounter Start Date: 11/05/18 Encounter Start Time: 09:00 Patient seen and examined. No new complaints. No overnight events - Objective Resuscitation Status - Order Detail: 10/22/18 22:26 Resuscitation Status Routine Resuscitation Status: FULL: Full Resuscitation MAR Reviewed: Yes Vital Signs & Weight: Vital Signs (12 hours) Temp Pulse Resp BP BP Pulse Ox 11/05/18 09:02 97.4 F L 19 84/56 L 98 11/05/18 04:00 97.7 F 84 20 93/54 L 93 L Weight Admit Weight 209 lb 11.2 oz Weight 185 lb Most Recent Monitor Data Heart Rate from ECG 62 NIBP 94/41 NIBP BP-Mean 58 Respiration from ECG 13 SpO2 92 I&O: 11/04/18 11/05/18 11/06/18 06:59 06:59 06:59 Intake Total 1380 1945 Output Total 1375 450 Balance 5 1495 Result Diagrams: 11/05/18 05:15 11/05/18 05:15 Additional Labs: Accuchecks 11/04/18 20:29 POC Glucose 99 EKG Reviewed by me: Yes (nsr) Phys Exam - Physical Examination Constitutional: NAD HEENT: PERRLA, moist MMs, sclera anicteric Neck: no JVD, supple Respiratory: no wheezing, no rales, no rhonchi Cardiovascular: RRR, no significant murmur, no rub Gastrointestinal: soft, non-tender, no distention, positive bowel sounds Musculoskeletal: no edema, pulses present Neurological: non-focal, normal sensation, moves all 4 limbs Lymphatic: no nodes Psychiatric: normal affect, A&O x 3 Skin: no rash, normal turgor Dx/Plan (1) Acute systolic ACC/AHA stage C congestive heart failure Code(s): I50.21 - ACUTE SYSTOLIC (CONGESTIVE) HEART FAILURE Status: Acute (2) NSTEMI (non-ST elevated myocardial infarction) Code(s): I21.4 - NON-ST ELEVATION (NSTEMI) MYOCARDIAL INFARCTION Status: Acute (3) Severe mitral regurgitation Code(s): I34.0 - NONRHEUMATIC MITRAL (VALVE) INSUFFICIENCY Status: Acute (4) 3-vessel coronary artery disease Status: Acute Comment: s/p CABG (5) Hypokalemia Code(s): E87.6 - HYPOKALEMIA Status: Acute (6) Obesity (BMI 30.0-34.9) Code(s): E66.9 - OBESITY, UNSPECIFIED Status: Chronic (7) Constipation Code(s): K59.00 - CONSTIPATION, UNSPECIFIED Status: Resolved (8) Pneumothorax on left Code(s): J93.9 - PNEUMOTHORAX, UNSPECIFIED Status: Resolved Comment: left apical, improving - Plan cont current plan of care * medication reviewed as below * symptomatic treatment * stable for discharge 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 Review of Systems - Review of Systems ENT: negative: Ear Pain, Ear Discharge, Nose Pain, Nose Discharge, Nose Congestion, Mouth Pain, Mouth Swelling, Throat Pain, Throat Swelling, Other Respiratory: negative: Cough, Dry, Shortness of Breath, Hemoptysis, SOB with Excertion, Pleuritic Pain, Sputum, Wheezing Cardiovascular: negative: chest pain, palpitations, orthopnea, paroxysmal nocturnal dyspnea, edema, light headedness, other Gastrointestinal: negative: Nausea, Vomiting, Abdominal Pain, Diarrhea, Constipation, Melena, Hematochezia, Other Genitourinary: negative: Dysuria, Frequency, Incontinence, Hematuria, Retention , Other Musculoskeletal: negative: Neck Pain, Shoulder Pain, Arm Pain, Back Pain, Hand Pain, Leg Pain, Foot Pain, Other Skin: negative: Rash, Lesions, Valerio, Bruising, Other - Medications/Allergies Allergies/Adverse Reactions: Allergies Allergy/AdvReac Type Severity Reaction Status Date / Time No Known Allergies Allergy Unverified 10/22/18 22:37 Medications: Current Medications Hydrocodone Bitart/Acetaminophen (Sassafras 5/325) 1 tab PO Q4H PRN PRN Reason: Moderate Pain (4-6) Last Admin: 10/30/18 05:05 Dose: 1 tab Hydrocodone Bitart/Acetaminophen (Sassafras 5/325) 2 tab PO Q4H PRN PRN Reason: Severe Pain (7-10) Last Admin: 10/28/18 15:18 Dose: 2 tab Al Hydroxide/Mg Hydroxide (Maalox) 30 ml PO Q4H PRN PRN Reason: Indigestion Albuterol/Ipratropium (Duoneb) 3 ml NEB [id number] PRN PRN Reason: SHORTNESS OF BREATH Aspirin (Aspirin Chewable) 81 mg PO DAILY [facility] Last Admin: 11/05/18 09:07 Dose: 81 mg Atorvastatin Calcium (Lipitor) 40 mg PO HS [facility] Last Admin: 11/04/18 20:31 Dose: 40 mg Bisacodyl (Dulcolax) 10 mg PO Q12H PRN PRN Reason: Constipation Last Admin: 11/03/18 17:28 Dose: 10 mg Bisacodyl (Dulcolax) 10 mg RI Q12H PRN PRN Reason: Constipation Bisacodyl (Dulcolax) 10 mg RI NOW [facility] Stop: 11/05/18 12:00 Carvedilol (Coreg) 3.125 mg PO BID-[facility] Last Admin: 11/05/18 08:53 Dose: Not Given Diphenhydramine HCl (Benadryl) 25 mg PO Q6H PRN PRN Reason: Itching & Insomnia or [place] J Last Admin: 10/31/18 21:40 Dose: 25 mg Docusate Sodium (Colace) 100 mg PO BID [facility] Last Admin: 11/05/18 09:07 Dose: 100 mg Famotidine (Pepcid) 20 mg PO BID [facility] Last Admin: 11/05/18 09:07 Dose: 20 mg Furosemide (Lasix) 40 mg PO DAILY-[facility] Last Admin: 11/05/18 09:07 Dose: 40 mg Guaifenesin/Dextromethorphan (Robitussin Dm) 15 ml PO Q4H PRN PRN Reason: Cough Lisinopril (Zestril) 2.5 mg PO 1200 [facility] Mineral Oil (Fleet Mineral Oil) 133 ml RI DAILYPRN PRN PRN Reason: Constipation Last Admin: 11/04/18 20:43 Dose: 133 ml Mineral Oil (Mineral Oil) 60 ml PO ONE [facility] Stop: 11/05/18 12:00 Last Admin: 11/05/18 09:07 Dose: 60 ml Nitroglycerin (Nitrostat) 0.4 mg SL Q5MIN PRN PRN Reason: Chest Pain Ondansetron HCl (Zofran) 4 mg IVP Q6H PRN PRN Reason: Nausea/Vomiting Last Admin: 10/30/18 02:00 Dose: 4 mg Polyethylene Glycol (Miralax) 17 gm PO ONE [facility] Stop: 11/05/18 12:00 Last Admin: 12/26/18 09:07 Dose: 17 gm Potassium Chloride (K-Dur) 20 meq PO TID-[facility] Last Admin: 11/05/18 09:07 Dose: 20 meq Sodium Chloride (Flush - Normal Saline) 10 ml IVF Q12HR [facility] Last Admin: 11/05/18 09:15 Dose: 10 ml Zolpidem Tartrate (Ambien) 5 mg PO HSPRN PRN PRN Reason: Insomnia
--- NOTE | 2018-11-05 11:13 | DIS ---
DATE OF ADMISSION: 10/22/2018 DATE OF DISCHARGE: 11/05/2018 PRIMARY CARE PHYSICIAN: [facility] Call admission. DISCHARGE DISPOSITION: [facility]. PRIMARY DISCHARGE DIAGNOSES: 1. Non-ST elevation myocardial infarction. 2. Acute systolic stage C congestive heart failure. 3. Severe mitral regurgitation. 4. Three-vessel coronary artery disease. 5. Status post coronary artery bypass graft. 6. Hypokalemia. 7. Mild left pneumothorax. 8. Severe constipation. SECONDARY DISCHARGE DIAGNOSIS: Obesity. PRIMARY PROCEDURE/OPERATION: Cardiac catheterization was performed by Dr. Blanco, found with 3-vessel coronary artery disease. CABG was performed by Dr. Kendrick. RADIOLOGICAL INVESTIGATION: The patient had several chest x-rays and echocardiography. SIGNIFICANT LABORATORY DATA: WBC 15.8, hemoglobin 12.9, platelets 327. INR 1.6. Sodium 132, potassium 3.9, BUN 18, creatinine 1.09, calcium 8.6. DISCHARGE MEDICATIONS: 1. Aspirin 81 mg daily. 2. Lipitor 40 mg p.o. at bedtime. 3. Coreg 3.125 mg p.o. b.i.d. 4. Colace 100 mg p.o. b.i.d. 5. Pepcid 20 mg p.o. b.i.d. 6. Lasix 40 mg p.o. daily. 7. Lisinopril 2.5 mg daily. 8. Potassium chloride 20 mEq p.o. daily. CONTRAINDICATION: None. CODE STATUS: Full code. INPATIENT INSTRUMENT MECH[employer]IC [employer] SYSTEM: Dr. Blanco was consulted for non-STEMI. Dr. Kendrick was consulted for CABG. TEST RESULT PENDING ON DISCHARGE: None. ALLERGIES: NO KNOWN DRUG ALLERGIES. DISCHARGE PLAN: Posthospital, the patient will follow up with Dr. Nik Simon on November 24, 2018. The patient will follow up with Dr. Blanco in 3 to 4 weeks. The patient will follow up with Dr. Kendrick in 2 weeks. HOSPITAL COURSE: A 72-year-old male with above-mentioned medical problem, who was admitted by Dr. Valentin. Please see his H and P for further detail. The patient was admitted on October 23, 2018. On admission, the patient was having acute onset of shortness of breath. He was evaluated at [facility] Room, where he was found with acute CHF. He was transferred to our hospital for continuous care. We noted that he also had significantly elevated troponin and he was having non-ST elevation [place]. The patient had echocardiography, which showed low EF as well as mitral regurgitation. The patient was treated with Lasix while in hospital, and subsequently, when the patient was euvolemic, at that time, the patient underwent cardiac catheterization which showed severe three-vessel coronary artery disease that required CABG. After CABG, the patient remained in CCU. He had mild transient pneumothorax that was resolved. His chest tube was ultimately discontinued. He was treated with Lasix for volume overload status after surgery, and now by the time of discharge, the patient is euvolemic. His hospital course was also complicated by constipation that was treated while in hospital. His blood pressure remaining on lower side, and that is why he sometimes not at all tolerating Coreg and lisinopril, but if blood pressure permits, then Coreg and lisinopril can be resumed. He will continue above-mentioned medication. LifeVest was arranged before discharge. I have seen and examined this patient at bedside today. Please see my progress note from today for further detail. I spoke with Dr. Guevara and explained about the patient's hospital course. Paperwork for discharge done. Discharge medication reconciliation done. If all consultants are okay, then we will consider discharging him to swing bed later on today. Total time spent on discharge is 31 minutes. Job ID: [id number]
[2018-11-05 11:41] VITALS: TEMP 97.8
[2018-11-05 14:13] VITALS: BP 104/57
== END 2018-11-05 14:12 | disposition swing bed (61) | DRG 233 ==
LOC: ERS 17:05 → 2NO 22:32 → CCU 10-27 06:48 → 2NO 10-31 17:23
PROVIDERS: ADMIT Internal Medicine; ATTEND Internal Medicine
PROC: 4A023N7 Measurement of Cardiac Sampling and Pressure, Left Heart, Percutaneous Approach (ICD-10-PCS; 2018-10-24)
PROC: B2111ZZ Fluoroscopy of Multiple Coronary Arteries using Low Osmolar Contrast (ICD-10-PCS; 2018-10-24)
PROC: B2151ZZ Fluoroscopy of Left Heart using Low Osmolar Contrast (ICD-10-PCS; 2018-10-24)
PROC: 02100Z9 Bypass Coronary Artery, One Artery from Left Internal Mammary, Open Approach (ICD-10-PCS; principal; 2018-10-27)
PROC: 06BP0ZZ Excision of Right Saphenous Vein, Open Approach (ICD-10-PCS; 2018-10-27)
PROC: 021309W Bypass Coronary Artery, Four or More Arteries from Aorta with Autologous Venous Tissue, Open Approach (ICD-10-PCS; 2018-10-27)
PROC: 5A1221Z Performance of Cardiac Output, Continuous (ICD-10-PCS; 2018-10-27)
DX: I21.4 Non-ST elevation (NSTEMI) myocardial infarction (principal); I50.21 Acute systolic (congestive) heart failure; J90 Pleural effusion, not elsewhere classified; J93.9 Pneumothorax, unspecified; I11.0 Hypertensive heart disease with heart failure; I25.5 Ischemic cardiomyopathy; E87.6 Hypokalemia; I25.10 Atherosclerotic heart disease of native coronary artery without angina pectoris; I34.0 Nonrheumatic mitral (valve) insufficiency; K59.00 Constipation, unspecified; F17.210 Nicotine dependence, cigarettes, uncomplicated; E66.9 Obesity, unspecified; Z68.26 Body mass index [BMI] 26.0-26.9, adult
CPT/HCPCS: 36415; 36416; 71045; 80048; 80061; 80076; 82565; 82805; 83735; 83880; 84443; 84484; 85014; 85018; 85025; 85049; 85347; 85610; 85730; 86850; 86900; 86901; 93005; 93010; 93306; 93458; 93798; 94002; 94150; 94760; 99152; A4216; C1769; G8978-GP-CH; G8979-GP-CH; G8980-GP-CH; G8987-GO-CJ; G8988-GO-CJ; G8989-GO-CJ; J0153; J0690; J1100; J1250; J1610; J1642; J1644; J1650; J1815; J1940; J2001; J2150; J2250; J2405; J2440; J2704; J2720; J3010; J3370; J3475; J3480; J7050; P9045; P9047; S0017; S0028

== ENCOUNTER 2021-04-03 10:36 | Outpatient (CLI) | payer OTHER, MEDICARE ==
[2021-04-03 11:53] LABS: #Basophils 0.1 10x3/uL (0.0-0.2); #Eosinphils 0.3 10x3/uL (0.0-0.5); #Monocytes 0.6 10x3/uL (0.0-1.1); #Neutrophils 3.7 10x3/uL (1.5-8.4); %Basophils 1.2 % (0.0-2.0); %Eosinophils 4.5 % (0.0-6.0); %Lymphocytes 17.8 % (18.0-47.0); %Monocytes 10.3 % (0.0-10.0); %Neutrophils 65.8 % (40.0-75.0); Hemoglobin 11.9 g/dL (13.5-17.5); Mean Corpuscular HGB CONC 33.5 g/dL (32.0-36.0); Mean Corpuscular Hemoglobin 32.5 pg (27.0-33.0); Mean Platelet Volume 10.4 fl (7.4-10.4); Platelet Count 167 10x3/uL (150-450); RBC Distribution Width 12.8 % (11.5-14.5); Red Blood Cell (RBC) Count 3.66 10x6/uL (4.32-5.72); White Blood Cell (WBC) Count 5.6 10x3/uL (3.5-10.5)
[2021-04-03 12:01] LABS: ALT (SGPT) 18 U/L (8-55); AST (SGOT) 35 U/L (5-34); Albumin 3.9 g/dL (3.4-4.8); Alkaline Phosphatase 80 U/L (40-110); Anion Gap 15 mmol/L (10-20); BUN (Urea Nitrogen) 21 mg/dL (8.4-25.7); Bilirubin, Total 0.8 mg/dL (0.2-1.2); Calc. Creatinine Clearance 0 mL/min (70-130); Calcium 9.9 mg/dL (7.8-10.44); Carbon Dioxide 27 mmol/L (23-31); Chloride 102 mmol/L (98-107); Globulin 3.9 g/dL (2.4-3.5); Glucose 123 mg/dL (83-110); Potassium 4.7 mmol/L (3.5-5.1); Protein, Total 7.8 g/dL (5.8-8.1); Sodium 139 mmol/L (136-145)
[2021-04-03 17:53] LABS: SARS-CoV-2 PCR by NAA Not Detected (NotDetected)
== END 2021-04-03 10:37 | disposition home or self-care (01) ==
LOC: LABBT 10:36
PROVIDERS: ATTEND Internal Medicine Cardiovascular Disease
DX: Z01.818 Encounter for other preprocedural examination (principal); R93.1 Abnormal findings on diagnostic imaging of heart and coronary circulation; Z20.822 Contact with and (suspected) exposure to COVID-19
CPT/HCPCS: 80053; 85025; 87635; U0003; U0005

== ENCOUNTER 2021-04-06 05:45 | Day surgery (SDC) | payer OTHER ==
[2021-04-05 09:59] VITALS: BMI 25.7
[2021-04-06] MEDS ORDERED: Fentanyl 100 MCG/2 ML VIAL ONE (06:35)
[2021-04-06] MEDS ORDERED: Lidocaine 1% (PF) 30 ML VIAL ONE (06:36)
[2021-04-06] MEDS ORDERED: Heparin 10,000 UNITS/ 10 ML VIAL ONE (06:36)
[2021-04-06] MEDS ORDERED: Midazolam HCl 2 mg/2 ml Vial ONE (06:36)
[2021-04-06 07:08] LABS: Cardiac Risk 2.3 (Less than 4.5)
[2021-04-06] MEDS ORDERED: Protamine Sulfate 50 MG/5 ML VIAL ONE (07:31)
[2021-04-06] MEDS ORDERED: Iopamidol 370 76% 50 ML VIAL FS ONE (09:56)
[2021-04-06] MEDS ORDERED: Iopamidol 370 76% 100 ML VIAL ONE (09:56)
== END 2021-04-06 14:20 | disposition home or self-care (01) ==
LOC: CCL 05:45
PROVIDERS: ATTEND Internal Medicine Cardiovascular Disease
PROC: B2181ZZ Fluoroscopy of Left Internal Mammary Bypass Graft using Low Osmolar Contrast (ICD-10-PCS; principal; 2021-04-06)
PROC: B2111ZZ Fluoroscopy of Multiple Coronary Arteries using Low Osmolar Contrast (ICD-10-PCS; principal; 2021-04-06)
PROC: B2131ZZ Fluoroscopy of Multiple Coronary Artery Bypass Grafts using Low Osmolar Contrast (ICD-10-PCS; principal; 2021-04-06)
PROC: 4A023N7 Measurement of Cardiac Sampling and Pressure, Left Heart, Percutaneous Approach (ICD-10-PCS; principal; 2021-04-06)
DX: I25.10 Atherosclerotic heart disease of native coronary artery without angina pectoris (principal); I25.82 Chronic total occlusion of coronary artery; I25.5 Ischemic cardiomyopathy; I25.2 Old myocardial infarction; E78.00 Pure hypercholesterolemia, unspecified; I10 Essential (primary) hypertension; Z87.891 Personal history of nicotine dependence; Z79.82 Long term (current) use of aspirin; Z79.899 Other long term (current) drug therapy; Z95.1 Presence of aortocoronary bypass graft; Z95.810 Presence of automatic (implantable) cardiac defibrillator
CPT/HCPCS: 80061; 85347; 93455; 99152; 99153; J1644; J2001; J2250; J2720; J3010; Q9967